=== PATIENT | female | born 1950 | race Caucasian/White ===

== ENCOUNTER 2022-08-28 11:53 | Inpatient (IN) | payer OTHER ==
[~2022-08-28] VITALS: Ht 165.1 cm; Wt 64.0 kg
[~2022-08-28 11:53] MED LIST: ASA81 PO; CLOP75TA32 PO; EMPA25TA PO; LEVO25TA7 PO; LIP40; LISI10TA29 PO; SEMA2PEN
[2022-08-28 11:55] VITALS: BP_SYST 167
--- NOTE | 2022-08-28 11:55 | NUR ---
Placed in room 01 . Placed on manager cardiac cath, blood pressure machine and pulse oximeter. To gown for exam. Side rails up.
--- NOTE | 2022-08-28 11:56 | NUR ---
ER DR. HOSKINS EXAMINING PT
--- NOTE | 2022-08-28 11:57 | NUR ---
RT AT THE BEDSIDE
[2022-08-28] MEDS ORDERED: ETOMIDATE 20 MG/ 10 ML VIAL (AMIDATE) ONE (12:00)
[2022-08-28] MEDS ORDERED: SUCCINYLCHOLINE CHLORIDE 20 MG/ML(QUELICIN) ONE (12:00)
--- NOTE | 2022-08-28 12:00 | NUR ---
Patient not known to be of DNR status. Patient medicated with 20MG mg of ETOMIDATE for sedation prior to placement of ET tube. Respiratory therapy at bedside prior to placement. Size 7.5 ET tube placed by DR. HOSKINS. Cuff inflated with 10 cc air. Auscultation of breath sounds over bilateral chest wall. ET tube secured. O2 sats 100% pulse ox. PCXR ordered to check tube placement.
--- NOTE | 2022-08-28 12:01 | NUR ---
CODE STROKE CALLED
--- NOTE | 2022-08-28 12:02 | NUR ---
TELENEURO AT THE BEDSIDE
--- NOTE | 2022-08-28 12:02 | NUR ---
# 20 gauge angiocath placed to LAC. Use of asceptic technique. Opsite placed over site. Blood return noted. Flushed with 10 cc of normal saline. No evidence of infiltration noted. Patient tolerated well.
[2022-08-28] MEDS ORDERED: PROPOFOL DRIP 100 ML IV ONE (12:30)
--- NOTE | 2022-08-28 12:35 | NUR ---
PT LAYING IN BED WITH SOME MOVEMENT TO RIGHT LEG. PT RESPONS TO PAINFUL STIMULI. NOTED V/S WILL CONTINUE TO MONITOR
[2022-08-28] MEDS ORDERED: iohexoL 350 mgI/mL, 100 ML INFUS..BTL IV ONE (12:44)
--- NOTE | 2022-08-28 12:50 | NUR ---
PT TAKEN TO CT FOR CT ANGIO.
[2022-08-28 13:04] LABS: BASOPHILS # (AUTO) 0.1 K/uL (0.0-0.2); BASOPHILS % (AUTO) 0.9 % (0.0-2.0); EOSINOPHILS # (AUTO) 0.1 K/uL (0.0-0.4); EOSINOPHILS % (AUTO) 1.1 % (0.0-4.0); HEMATOCRIT 43.1 % (36-48); HEMOGLOBIN 14.3 g/dL (12.0-16.0); LYMPHOCYTES # (AUTO) 0.6 K/uL (1.0-5.5); LYMPHOCYTES % (AUTO) 5.1 % (20.5-51.5); MEAN CORPUSCULAR HEMOGLOBIN 30 pg (27-31); MEAN CORPUSCULAR HGB CONC 33 % (32-36); MEAN CORPUSCULAR VOLUME 91 fL (79.0-98.0); MONOCYTES # (AUTO) 0.5 K/uL (0.0-1.0); MONOCYTES % (AUTO) 4.9 % (1.7-9.3); NEUTROPHILS # (AUTO) 9.6 K/uL (1.8-7.7); PLATELET COUNT (AUTO) 210 K/uL (130-430); RED BLOOD CELL COUNT(AUTO) 4.75 MIL/uL (4.2-6.2); RED CELL DISTRIBUTION WIDTH 14.2 % (9.0-15.0); WHITE BLOOD COUNT (AUTO) 10.9 K/uL (4.8-10.8)
--- NOTE | 2022-08-28 13:05 | NUR ---
PT BROUGHT BACK TO BED 1. PROPOFOL @ 5cg/kg started. v/s noted. will continue to monitor
[2022-08-28 13:09] LABS: ANION GAP 24 (5-15); CALCIUM 9.2 mg/dL (8.4-11.0); CHLORIDE 99 mmol/L (98-107); CREATININE 1.49 mg/dL (0.55-1.30); GLUCOSE 247 mg/dL (70-99); UREA NITROGEN, BLOOD 44 mg/dL (8-21)
[2022-08-28 13:16] LABS: ALANINE AMINOTRANSFERASE 15 U/L (12-78); ALBUMIN 3.9 g/dL (3.4-4.8); ASPARTATE AMINOTRANSFERASE 17 U/L (10-37); TOTAL BILIRUBIN 0.8 mg/dL (0.0-1.0)
--- NOTE | 2022-08-28 14:15 | NUR ---
Cathetar Yung inserted 16 hebrew return immediately noted, pt tolerated well, Urine delivered to the lab. 400 ml bedside.
--- NOTE | 2022-08-28 14:19 | NUR ---
Repositioned pt with clean linens, pt feces urine and odor of blood. Cleansed from posterior skin intact, clean and dry.
[2022-08-28] MEDS ORDERED: AZITHROMYCIN 500 MG in NS 250 ML IV ONE (14:30)
[2022-08-28] MEDS ORDERED: NACL 0.9% 1,000 ML IV ONE (14:30)
[2022-08-28] MEDS ORDERED: cefTRIAXone 1 GM IVPB PREMIX 50 ML IV ONE (14:30)
--- NOTE | 2022-08-28 14:38 | NUR ---
PT LAYING CALM, SEDATED. CANDIDO WRIST RESTRAINTS ON. +CSM TO ALL EXTREMITIES. V/S NOTED. WILL CONTINUE TO MONITOR
--- NOTE | 2022-08-28 14:42 | NUR ---
MD De La Garza Neourologist connected to MD Hare
[2022-08-28] MEDS ORDERED: ONDANSETRON HCL 4 MG/2 ML VIAL IVP PRN (15:30)
[2022-08-28] MEDS ORDERED: ACETAMINOPHEN 325 MG TABLET PO PRN (15:30)
[2022-08-28 15:32] LABS: BILIRUBIN,URINE NEGATIVE (NEGATIVE); BLOOD, URINE 1+ (NEGATIVE); CLARITY/URINE CLEAR (CLEAR); COLOR,URINE YELLOW (YELLOW); GLUCOSE,URINE 3+ (NEGATIVE); KETONES,URINE 2+ (NEGATIVE); LEUKOCYTE ESTERASE ,URINE NEGATIVE (NEGATIVE); NITRITE, URINE NEGATIVE (NEGATIVE); PH,URINE 5.5 (5.0-8.0); PROTEIN URINE 1+ (NEGATIVE); UROBILINOGEN,URINE 0.2 (0.2-1.0)
--- NOTE | 2022-08-28 15:38 | NUR ---
aerospace technician bed side, suctioning pt.
[2022-08-28 16:01] LABS: BACTERIA,URINE FEW /HPF (None Seen); MUCUS,URINE None Seen /LPF (None Seen); WBC,URINE 0-3 /HPF (0-3)
[2022-08-28 16:02] LABS: FINE GRANULAR CASTS,URINE 0-10 /LPF (None Seen)
[2022-08-28] MEDS ORDERED: AZITHROMYCIN 500 MG/VIAL (ZITHROMAX) IV ONE (16:08)
--- NOTE | 2022-08-28 16:16 | NUR ---
Swabbed for COVID & MRSA, sent to lab.
[2022-08-28 17:02] VITALS: BP_SYST 141
[2022-08-28] MEDS: PIPERACILLIN/TAZO 3.375/DEX-IS 50 ML IV SCH (18:14)
[2022-08-28] MEDS ORDERED: PIPERACILLIN/TAZOBACTAM 3.375 GM/VIAL (ZOSYN) IV ONE (18:17)
--- NOTE | 2022-08-28 18:24 | NUR ---
Per lab's request, reswabbed pt. COVID & MRSA. sent to lab.
--- NOTE | 2022-08-28 19:30 | NUR ---
VSS, AC 14, TV 450, FIO2 100% PEEP 5, HOB ELEVATED 30%
--- NOTE | 2022-08-28 20:41 | NUR ---
AC 14, TV 450, FIO2 DECREASED TO 40% PEEP 5
--- NOTE | 2022-08-28 22:05 | NUR ---
PT RESTING IN BED WITH EVEN RESPIRATIONS, NON LABORED ,ON DIPRIVAN 9MCG/KG/MIN
[2022-08-29] VITALS (27 sets, daily range): BP systolic 82–165
--- NOTE | 2022-08-29 00:37 | NUR ---
KIM WOLF(TITI) ROOM 2
--- NOTE | 2022-08-29 01:00 | NUR ---
Pt. recieved from ED on Propofol Drip titrated to keep RASS -2 to -[address] ST on the scope. SBP>160 mmHg; Propofol titrated to 15 mcg?Kg/min. To start Zosyn once Blood Cultures are drawn. Made comfortable on the bed. Cardiac and resp. monitoring cont. Needs anticipated.
[2022-08-29] MEDS ORDERED: GLUCOSE (DEXTROSE) ORAL GEL -Adults PO PRN (02:00)
[2022-08-29] MEDS ORDERED: hydrALAZINE HCL 20 MG/ML VIAL IVP PRN (02:00)
[2022-08-29] MEDS ORDERED: PROPOFOL DRIP 100 ML IV PRN (02:00)
[2022-08-29] MEDS ORDERED: DEXTROSE 50% JECT 50 ML DISP.SYRIN IVP PRN (02:00)
[2022-08-29] MEDS ORDERED: D5W 1,000 ML IV PRN (02:00)
--- NOTE | 2022-08-29 02:08 | NUR ---
CONSULTATION PAGED/CALLED Reason for Consultation: AMS Person Who was Notified: left voicemail on cell phone Consulting Physician: huma Collections Attorney Specialty: neuro Ordering Physician: katherine
--- NOTE | 2022-08-29 02:09 | NUR ---
CONSULTATION PAGED/CALLED Reason for Consultation: sepsis Person Who was Notified: tiago Consulting Physician: ernesto Lead Tinner Specialty: infectious disease Ordering Physician: katherine
[2022-08-29] MEDS: NACL 0.9% 1,000 ML IV SCH ×2 (02:25→15:50)
--- NOTE | 2022-08-29 03:00 | NUR ---
Dr. Crawford made aware of pt admission with new orders noted and carried out. NS started @ 75 ml/hr. Propofol titrated to keep RASS -2 to -3. Repositioned. Assisted with needs prn. ST on the scope. SBP 140s @ this time. Remains on vent set @ AC 14, TV 450, FiO2 40% PEEP +5 with O2Sat= 98-100%. Will cont.to monitor.
[2022-08-29] MEDS: PIPERACILLIN/TAZO 3.375/DEX-IS 50 ML IV SCH ×2 (05:32)
--- NOTE | 2022-08-29 06:30 | NUR ---
Remains on vent with same settings sedated with propofol Drip @ 15 mcg/Kg/min. Blood Cultures Drawn x 2 and Zosyn adm IVPB with no adverse reactions at this time. Will follow up Lactate. ST on the scope. VSS. Repositioned. Will cont. to monitor.
[2022-08-29 06:39] LABS: ALANINE AMINOTRANSFERASE 24 U/L (12-78); ALBUMIN 3.3 g/dL (3.4-4.8); ANION GAP 17 (5-15); ASPARTATE AMINOTRANSFERASE 22 U/L (10-37); CALCIUM 8.9 mg/dL (8.4-11.0); CHLORIDE 105 mmol/L (98-107); CREATININE 1.42 mg/dL (0.55-1.30); GLUCOSE 221 mg/dL (70-99); TOTAL BILIRUBIN 0.6 mg/dL (0.0-1.0); UREA NITROGEN, BLOOD 48 mg/dL (8-21)
[2022-08-29 07:14] LABS: BASOPHILS % (AUTO) 0.5 % (0.0-2.0); HEMATOCRIT 38.6 % (36-48); LYMPHOCYTES # (AUTO) 0.8 K/uL (1.0-5.5); MEAN CORPUSCULAR HEMOGLOBIN 30 pg (27-31); MEAN CORPUSCULAR HGB CONC 34 % (32-36); MEAN CORPUSCULAR VOLUME 90 fL (79.0-98.0); MONOCYTES # (AUTO) 1.1 K/uL (0.0-1.0); MONOCYTES % (AUTO) 11.4 % (1.7-9.3); NEUTROPHILS # (AUTO) 7.6 K/uL (1.8-7.7); NEUTROPHILS % (AUTO) 80.1 % (40.0-70.0); PLATELET COUNT (AUTO) 186 K/uL (130-430); RED BLOOD CELL COUNT(AUTO) 4.31 MIL/uL (4.2-6.2); RED CELL DISTRIBUTION WIDTH 14.3 % (9.0-15.0); WHITE BLOOD COUNT (AUTO) 9.5 K/uL (4.8-10.8)
[2022-08-29] MEDS: INSULIN REGULAR, HUMAN 100 UNITS/ML, 3 ML VIAL (humuLIN R) SUBCUT PRN (07:45)
--- NOTE | 2022-08-29 11:00 | NUR ---
PULMO CONSULT: SEEN AND EXAMINE PATIENT INFORMED PATIENT NO FEEDING, STATED HOLD NGT INSERTION AT THIS TIME, CPAP TRIAL AND PLAN FOR EXTUBATION. RT ( JAC MEI) INFORMED.
[2022-08-29] MEDS: cefTRIAXone 1 GM in D5W 50 ML IV SCH (11:31)
--- NOTE | 2022-08-29 12:00 | NUR ---
patient brother( luis a) came updated patient current condition and poc. stated would like to speak with the attending physician. advised will let MD aware.
--- NOTE | 2022-08-29 14:20 | NUR ---
rt notes 1420 placed pt back to ac mode. tolerated weaning trial. Addendum: 08/29/22 at 1421 by Lorena Livingston RT Amended: Links added.
[2022-08-29] MEDS: metroNIDAZOLE 500 mg/NS 100 ML IV SCH ×2 (14:33→21:35)
[2022-08-29] MEDS ORDERED: PANTOPRAZOLE SODIUM 40 MG/VIAL (PROTONIX) IVP ONE (16:45)
--- NOTE | 2022-08-29 17:09 | NUR ---
MD TONG MADE ROUNDS,UPDATED CURRENT CONDITION AND POC. INFORMED FAMILY WOULD LIKE TO SPEAK WITH HIM.
--- NOTE | 2022-08-29 19:27 | NUR ---
sbar bedside report given to eleazar WALLS.
[2022-08-30] VITALS (27 sets, daily range): BP systolic 107–182
[2022-08-30] MEDS: NACL 0.9% 1,000 ML IV SCH ×2 (04:45→17:57)
[2022-08-30 05:27] LABS: BASOPHILS % (AUTO) 0.3 % (0.0-2.0); EOSINOPHILS % (AUTO) 0.1 % (0.0-4.0); HEMOGLOBIN 12.6 g/dL (12.0-16.0); LYMPHOCYTES # (AUTO) 1.3 K/uL (1.0-5.5); LYMPHOCYTES % (AUTO) 10.8 % (20.5-51.5); MEAN CORPUSCULAR HEMOGLOBIN 30 pg (27-31); MEAN CORPUSCULAR HGB CONC 33 % (32-36); MEAN CORPUSCULAR VOLUME 91 fL (79.0-98.0); MONOCYTES # (AUTO) 1.2 K/uL (0.0-1.0); MONOCYTES % (AUTO) 9.8 % (1.7-9.3); NEUTROPHILS # (AUTO) 9.3 K/uL (1.8-7.7); PLATELET COUNT (AUTO) 154 K/uL (130-430); RED BLOOD CELL COUNT(AUTO) 4.17 MIL/uL (4.2-6.2); RED CELL DISTRIBUTION WIDTH 14.6 % (9.0-15.0); WHITE BLOOD COUNT (AUTO) 11.8 K/uL (4.8-10.8)
[2022-08-30 06:10] LABS: ANION GAP 17 (5-15); CHLORIDE 108 mmol/L (98-107); CREATININE 1.41 mg/dL (0.55-1.30); GLUCOSE 176 mg/dL (70-99); UREA NITROGEN, BLOOD 59 mg/dL (8-21)
[2022-08-30] MEDS: metroNIDAZOLE 500 mg/NS 100 ML IV SCH ×3 (06:53→22:00)
--- NOTE | 2022-08-30 07:56 | NUR ---
RT NOTES start cpap Coordinated with RN, vent to cpap 5 ps 10. Pt is awake, no distress noted. Will monitor pt.
--- NOTE | 2022-08-30 08:30 | NUR ---
Patient is awake and alert, denies pain or discomfort at present. Bilateral wrist restraints secure with adequate cap refill, no signs of SBD noted. Patient nods appropriate responses, follows commands in all extremities. 0756 Propofol off for SBT, patient placed on CPAP 30%, 5/10 by RT. Patient's vitals remain stable, patient denies SOB or discomfort, restraints remain in place. Will continue to monitor.
[2022-08-30] MEDS: PANTOPRAZOLE SODIUM 40 MG/VIAL (PROTONIX) IVP SCH (09:17)
--- NOTE | 2022-08-30 09:38 | NUR ---
RT NOTES Dr Yvette steele, ordered to extubate pt, stated no need for ABG.
--- NOTE | 2022-08-30 09:53 | NUR ---
RT NOTES Per order, pt was extubated and placed on 3L NC initially, titrated to 2L. Sat 100% H.R 112 R.R 12. Oral sxn done before cuff deflation.
--- NOTE | 2022-08-30 10:04 | NUR ---
0920 Dr Crawford rounded at bedside. 0953 Patient is extubated to 2LNC by RT without difficulty. Patient instructed to cough and deep breathe. Restraints removed, will keep NPO for now. Will continue to assess.
--- NOTE | 2022-08-30 10:45 | NUR ---
Patient is awake and alert, denies pain or discomfort, has removed telemetry and refuses to allow staff to replace. Patient becomes agitated and kicking and swatting at staff, restraints replaced for safety. Brother and SNL at bedside visiting, patient behavior continues despite family presence. Will continue to observe patient for safety.
[2022-08-30] MEDS: cefTRIAXone 1 GM in D5W 50 ML IV SCH (11:41)
--- NOTE | 2022-08-30 11:45 | NUR ---
After visiting with brother, Bereket states that he is "still concerned about her mental status, which is not the same". He says she is normally fiesty but not to this extent of refusing care and combativeness.
--- NOTE | 2022-08-30 12:12 | NUR ---
Noon LUCITAG 172, will hold SSI due to NPO status
--- NOTE | 2022-08-30 13:58 | NUR ---
Dietitian Recommendations * Recommend speech eval and advancement of diet once evaluated GS, MPH, RD Please refer to RD Assessment for further details. Thanks! Addendum: 08/30/22 at [address] Amended: Links added.
--- NOTE | 2022-08-30 15:45 | NUR ---
Wound Evaluation: Wound Consult ordered for Low Gabriel Score. Patient evaluated for a low Gabriel score, now a 15. Patient was awake, alert, recently extubated, and received in a Pillow Bed with an Isoflex CHANTELLE mattress low air loss therapy initiated. Patient needs assist to turn in bed. Skin is intact. Recommend reposition patient side to side only every 2 hours with pillow support. Elevate, off-load and float bilateral heels with pillows. Offload pressure areas with pillows for pressure re-distribution. Perform skin care and monitor skin integrity Q shift. Use moisture barrier cream on moisture susceptible areas QID and PRN for soiling. Maintain patient on a low air-loss mattress.
--- NOTE | 2022-08-30 16:17 | NUR ---
Patient passed nursing swallow eval with water and juice, no coughing noted during assessment. Dr Morales paged and notified of assessment, as well as elevated HR and BP. Ordered Lopressor 50mg BID, and to keep NPO x meds until tomorrow.
[2022-08-30] MEDS ORDERED: METOPROLOL TARTRATE 50 MG TABLET PO ONE (17:00)
--- NOTE | 2022-08-30 17:58 | NUR ---
1800 CB 182, will hold SSI due to NPO status.
[2022-08-30] MEDS: METOPROLOL TARTRATE 50 MG TABLET PO SCH (21:59)
[2022-08-31] VITALS (17 sets, daily range): BP systolic 135–171
[2022-08-31 05:21] LABS: BASOPHILS % (AUTO) 0.4 % (0.0-2.0); EOSINOPHILS # (AUTO) 0.1 K/uL (0.0-0.4); EOSINOPHILS % (AUTO) 0.8 % (0.0-4.0); HEMATOCRIT 40.8 % (36-48); HEMOGLOBIN 13.5 g/dL (12.0-16.0); LYMPHOCYTES # (AUTO) 0.9 K/uL (1.0-5.5); LYMPHOCYTES % (AUTO) 8.5 % (20.5-51.5); MEAN CORPUSCULAR HEMOGLOBIN 30 pg (27-31); MEAN CORPUSCULAR HGB CONC 33 % (32-36); MEAN CORPUSCULAR VOLUME 91 fL (79.0-98.0); MONOCYTES # (AUTO) 0.6 K/uL (0.0-1.0); MONOCYTES % (AUTO) 5.7 % (1.7-9.3); NEUTROPHILS # (AUTO) 9.2 K/uL (1.8-7.7); NEUTROPHILS % (AUTO) 84.6 % (40.0-70.0); PLATELET COUNT (AUTO) 153 K/uL (130-430); RED BLOOD CELL COUNT(AUTO) 4.48 MIL/uL (4.2-6.2); RED CELL DISTRIBUTION WIDTH 14.3 % (9.0-15.0); WHITE BLOOD COUNT (AUTO) 10.9 K/uL (4.8-10.8)
[2022-08-31 05:43] LABS: ANION GAP 15 (5-15); CALCIUM 9.2 mg/dL (8.4-11.0); CHLORIDE 114 mmol/L (98-107); CREATININE 0.91 mg/dL (0.55-1.30); GLUCOSE 145 mg/dL (70-99); UREA NITROGEN, BLOOD 49 mg/dL (8-21)
[2022-08-31] MEDS: metroNIDAZOLE 500 mg/NS 100 ML IV SCH ×3 (07:07→21:32)
[2022-08-31] MEDS: NACL 0.9% 1,000 ML IV SCH ×2 (07:20→21:33)
[2022-08-31] MEDS: METOPROLOL TARTRATE 50 MG TABLET PO SCH ×2 (08:52→21:32)
[2022-08-31 08:59] LABS: PROTHROMBIN TIME 10.4 SECS (9.5-12.5)
[2022-08-31] MEDS: PANTOPRAZOLE SODIUM 40 MG/VIAL (PROTONIX) IVP SCH (09:00)
--- NOTE | 2022-08-31 09:00 | NUR ---
sees pt at bedside, endorsed doc pt scratching her chest and starting to bleeding, dr. Morales still wanted to put pt on hand mitt
[2022-08-31] MEDS ORDERED: hydrALAZINE HCL 25 MG TABLET PO ONE (10:00)
--- NOTE | 2022-08-31 11:00 | NUR ---
Pt took off hand mitt by herself, explained to pt that the benefit of protective measures and patient verbalized understanding
--- NOTE | 2022-08-31 13:30 | NUR ---
unable to get hold of EDUARD[facility] RN to give report, called twice, will try again
[2022-08-31] MEDS: cefTRIAXone 1 GM in D5W 50 ML IV SCH (14:17)
[2022-08-31] MEDS: hydrALAZINE HCL 25 MG TABLET PO SCH ×2 (14:26→21:31)
--- NOTE | 2022-08-31 15:10 | NUR ---
transfered pt to [facility] 134A, gave hand off report at bedside to nurses, pt is awake, knows person but disoriented to place and situation, on bilateral wrist restraint due to confusion and pulling off director medical and hurting herself, on 2L n.c., O2 sat well, right arm PICC infusing with ABX, joy cath patent, cloudy urine, moving all extremeties, peripheral pulse palpable.
--- NOTE | 2022-08-31 16:40 | NUR ---
ST EVALUATION COMPLETED. ST TX NOT INDICATED AT THIS TIME. RECOMMEND PO DIET OF MECHANICAL SOFT AND THIN LIQUIDS. 1:1 SUPERVISION AND FULL ASPIRATION PRECAUTIONS
--- NOTE | 2022-08-31 20:00 | NUR ---
OPENING Patient resting in bed, unlabored breathing, no distress noted. IV fluids infusing as ordered. Bilateral wrist restraints in place, no sign of injury noted. Yung catheter draining yellow urine to gravity. Safety precautions in place.
--- NOTE | 2022-08-31 23:00 | NUR ---
RESTRAINTS DISCONTINUED Patient alert to name, place, and year. Calm and cooperative with care and answers questions appropriately. Patient stated she will not pull on any tubes or lines. Restraints discontinued at 2300. Bed alarm on, hourly rounding done, safety precautions in place.
[2022-09-01 01:20] VITALS: BP_SYST 140
--- NOTE | 2022-09-01 02:30 | NUR ---
ROUNDS Patient sleeping in bed, no distress noted. Bed alarm on.
[2022-09-01 05:50] LABS: BASOPHILS % (AUTO) 0.2 % (0.0-2.0); HEMATOCRIT 38.1 % (36-48); HEMOGLOBIN 12.8 g/dL (12.0-16.0); LYMPHOCYTES # (AUTO) 0.9 K/uL (1.0-5.5); LYMPHOCYTES % (AUTO) 11.6 % (20.5-51.5); MEAN CORPUSCULAR HEMOGLOBIN 30 pg (27-31); MEAN CORPUSCULAR HGB CONC 34 % (32-36); MEAN CORPUSCULAR VOLUME 91 fL (79.0-98.0); MONOCYTES # (AUTO) 0.5 K/uL (0.0-1.0); MONOCYTES % (AUTO) 6.5 % (1.7-9.3); NEUTROPHILS # (AUTO) 6.2 K/uL (1.8-7.7); NEUTROPHILS % (AUTO) 81.7 % (40.0-70.0); PLATELET COUNT (AUTO) 171 K/uL (130-430); RED BLOOD CELL COUNT(AUTO) 4.21 MIL/uL (4.2-6.2); RED CELL DISTRIBUTION WIDTH 14.3 % (9.0-15.0); WHITE BLOOD COUNT (AUTO) 7.5 K/uL (4.8-10.8)
[2022-09-01 06:36] LABS: ANION GAP 16 (5-15); CALCIUM 8.6 mg/dL (8.4-11.0); CHLORIDE 116 mmol/L (98-107); CREATININE 0.93 mg/dL (0.55-1.30); GLUCOSE 161 mg/dL (70-99); UREA NITROGEN, BLOOD 46 mg/dL (8-21)
[2022-09-01] MEDS: hydrALAZINE HCL 25 MG TABLET PO SCH ×3 (06:51→22:00)
[2022-09-01] MEDS: metroNIDAZOLE 500 mg/NS 100 ML IV SCH ×3 (06:52→21:31)
--- NOTE | 2022-09-01 07:50 | NUR ---
CLOSING Patient resting in bed, no distress noted. Remained calm and cooperative through night, no pulling on lines. Blood sugar 149 this morning. IV fluids infusing as ordered. Yung catheter draining to gravity. Bed alarm on, call light in reach, bed low and locked. Endorsed to oncoming nurse.
[2022-09-01 08:00] VITALS: BP_SYST 115
[2022-09-01] MEDS: PANTOPRAZOLE SODIUM 40 MG/VIAL (PROTONIX) IVP SCH (09:22)
[2022-09-01] MEDS: METOPROLOL TARTRATE 50 MG TABLET PO SCH ×2 (09:23→21:36)
[2022-09-01] MEDS: NACL 0.9% 1,000 ML IV SCH ×2 (10:00→23:20)
[2022-09-01] MEDS ORDERED: POTASSIUM CHLORIDE 20 MEQ/PKT PACKET PO ONE (12:15)
[2022-09-01] MEDS: cefTRIAXone 1 GM in D5W 50 ML IV SCH (12:28)
[2022-09-01] MEDS: INSULIN REGULAR, HUMAN 100 UNITS/ML, 3 ML VIAL (humuLIN R) SUBCUT PRN ×3 (12:30→22:00)
[2022-09-01 12:48] VITALS: BP_SYST 121
--- NOTE | 2022-09-01 15:26 | NUR ---
CONSULTATION PAGED REASON FOR CONSULTATION:CONFUSION WAS CONSULT CALLED?Y PERSON WHO WAS NOTIFIED:VOICEMAIL LEFT CONSULTING PHYSICIAN:[facility] MANAGER SPECIALTY:[facility] MANAGER PHONE NUMBER:[phone] REQUESTING PHYSICIAN:GAMAL PHELPS
--- NOTE | 2022-09-01 15:37 | NUR ---
PHYSICAL THERAPY CO-SIGN The Physical Therapy Progress Notes documented by Procurement Services Manager have been reviewed. Reviewed/Co-Signed by: Kareem Trevino Documentation Done by:FLOYD SHIPLEY Addendum: 09/01/22 at 1537 by Kareem Trevino PT Amended: Links added.
[2022-09-01 16:30] VITALS: BP_SYST 118
--- NOTE | 2022-09-01 17:02 | NUR ---
DISCONTINUE AND REMOVE GORDILLO CATHETER PER DR ORDER.INSTRUCTED PT TO CALL FOR ASSISTANCE WHEN NEEDS TO GO TO BATHROOM.NEEDS ATTENDED,CALL LIGHT & PERSONAL ITEMS WITHIN PT REACH SAFETY MAINTAINED.CONTINUE TO MONITOR PT.
[2022-09-01 20:02] VITALS: BP_SYST 119
[2022-09-02] VITALS: BP_SYST 148
--- NOTE | 2022-09-02 04:52 | NUR ---
pt resting in bed, NAD noted. denies other complaints.
[2022-09-02] MEDS: hydrALAZINE HCL 25 MG TABLET PO SCH ×3 (06:00→22:03)
[2022-09-02] MEDS: metroNIDAZOLE 500 mg/NS 100 ML IV SCH ×3 (06:12→21:23)
[2022-09-02] MEDS: INSULIN REGULAR, HUMAN 100 UNITS/ML, 3 ML VIAL (humuLIN R) SUBCUT PRN ×4 (06:50→21:45)
--- NOTE | 2022-09-02 07:09 | NUR ---
0600 Pt removed GHASSAN PICC, pt had blood all over the room. pt confused about whole details of removing PICC. per pt the blood was all over the place, i do know who spilled blood all over the place"
--- NOTE | 2022-09-02 07:12 | NUR ---
Dr ROCHA notified at 0700, advised ok to restart PICC
--- NOTE | 2022-09-02 07:18 | NUR ---
order for picc line entered per orders
--- NOTE | 2022-09-02 08:00 | NUR ---
Initial notes Received patient A/Ox2 confused respiration even and unlabored, no signs of distress. No IV access Continue to maintain safety precaution, bed in low position and call light w/in reached
[2022-09-02 08:22] VITALS: BP_SYST 151
[2022-09-02 08:49] LABS: PROTHROMBIN TIME 10.5 SECS (9.5-12.5)
[2022-09-02] MEDS: PANTOPRAZOLE SODIUM 40 MG/VIAL (PROTONIX) IVP SCH (09:00)
--- NOTE | 2022-09-02 10:35 | NUR ---
Nutrition F/U RD reviewed pts current EMR including diet hx, physician notes, nursing notes, pertinent labs/meds/procedures, care trends and care activity. Subjective Information RD s/w primary RN regarding pt condition. She attested that pt is very confused currently and not really eating well. RD suggested Glucerna BID and RN agreeable. RD noticed BG are high and said if PO intakes improve, we should add diabetic diet restriction, but while intakes are low, leave diet as is. Per EMR review: abd soft, non-distended w/ active bowel sounds; Gabriel: 13, BP 151/77 H; 09/02: Na 151 H, K+ 3.0L, BUN 46 H, BG 161H. Current Diet Order/Nutrition Support Mechanical soft x 1 day % PO intake Fair avg of 50% x 3 meals Last BM None documented Estimated Energy Expenditure (kcals/day) 4690-2563 kcal (25-30 kcal/kg CBW d/t RF, sepsis) Estimated Protein Required (g/day) 64-96g (1-1.5 g/kg CBW d/t TORI, RF, Sepsis) Estimated Fluid Required (l/day) 1.6-1.9L (1mL/kcal maintenance) Problem/Etiology/Signs/Symptoms * Altered nutrition-related lab values r/t renal dysfunction AEB high BUN/Cre (09/02: BUN high, Cre WNL) Expected Outcomes/Goals Monitor advancement of diet, appetite, and PO intakes w/ goal of pt meeting >75% of estimated nutritional needs, labs trending WNL, normal GI function, and skin integrity/wt maintenance Dietitian Recommendations * Continue mechanical soft diet * Ordered: Glucerna BID * If intakes improve, consider adding consistent CHO restriction d/t high BG levels * Consider bowel regimen as no BM documented since admit (5 days) * Consider DC NS as Na levels are trending high Follow up *Moderate Risk: f/u in 3-5 days GS, MPH, RD
--- NOTE | 2022-09-02 10:36 | NUR ---
Dietitian Recommendations * Continue mechanical soft diet * Ordered: Glucerna BID * If intakes improve, consider adding consistent CHO restriction d/t high BG levels * Consider bowel regimen as no BM documented since admit (5 days) * Consider DC NS as Na levels are trending high GS, MPH, RD Please refer to Nutrition F/U for further details. Thanks!
[2022-09-02 11:33] LABS: BASOPHILS % (AUTO) 0.9 % (0.0-2.0); HEMATOCRIT 36.3 % (36-48); HEMOGLOBIN 12.1 g/dL (12.0-16.0); LYMPHOCYTES # (AUTO) 0.7 K/uL (1.0-5.5); LYMPHOCYTES % (AUTO) 16.6 % (20.5-51.5); MEAN CORPUSCULAR HEMOGLOBIN 30 pg (27-31); MEAN CORPUSCULAR HGB CONC 33 % (32-36); MEAN CORPUSCULAR VOLUME 91 fL (79.0-98.0); MONOCYTES # (AUTO) 0.2 K/uL (0.0-1.0); MONOCYTES % (AUTO) 5.9 % (1.7-9.3); NEUTROPHILS # (AUTO) 3.2 K/uL (1.8-7.7); NEUTROPHILS % (AUTO) 75.6 % (40.0-70.0); PLATELET COUNT (AUTO) 146 K/uL (130-430); RED BLOOD CELL COUNT(AUTO) 4.02 MIL/uL (4.2-6.2); RED CELL DISTRIBUTION WIDTH 14.2 % (9.0-15.0); WHITE BLOOD COUNT (AUTO) 4.2 K/uL (4.8-10.8)
[2022-09-02 11:38] LABS: ALANINE AMINOTRANSFERASE 24 U/L (12-78); ALBUMIN 2.3 g/dL (3.4-4.8); ANION GAP 8 (5-15); ASPARTATE AMINOTRANSFERASE 20 U/L (10-37); CALCIUM 8.2 mg/dL (8.4-11.0); CHLORIDE 115 mmol/L (98-107); CREATININE 0.89 mg/dL (0.55-1.30); GLUCOSE 197 mg/dL (70-99); TOTAL BILIRUBIN 0.5 mg/dL (0.0-1.0); UREA NITROGEN, BLOOD 35 mg/dL (8-21)
[2022-09-02 12:00] VITALS: BP_SYST 140
[2022-09-02] MEDS: cefTRIAXone 1 GM in D5W 50 ML IV SCH (12:00)
[2022-09-02] MEDS: METOPROLOL TARTRATE 50 MG TABLET PO SCH ×2 (12:26→21:23)
[2022-09-02] MEDS: NACL 0.9% 1,000 ML IV SCH (12:40)
--- NOTE | 2022-09-02 14:17 | NUR ---
HIGH ALERT NOTE: Called Dr. Cazares back at [phone] identified within the medical roster to verify physician authenticity.
[2022-09-02] MEDS ORDERED: POTASSIUM CHLORIDE 20 MEQ TAB.PRT.SR PO ONE (14:45)
[2022-09-02 16:00] VITALS: BP_SYST 142
--- NOTE | 2022-09-02 17:45 | NUR ---
PICC line to right upper arm x 2 lumen, 1 CM out, total catheter 35 CM inserted by nurse Colin
--- NOTE | 2022-09-02 19:01 | NUR ---
Patient resting in bed, a/0x4 with some confusion. No c/o pain/SOB, no signs of distress. Reorient patient to use call light. PICC line inserted to GHASSAN x2 lumen by PICC nurse Colin. Maintain safety precaution and call light w/in reached will endorse to oncoming nurse.
[2022-09-02 20:19] VITALS: BP_SYST 140
--- NOTE | 2022-09-02 21:33 | NUR ---
pt resting in bed, scheduled Meds administered. per PICC line nurse documentation, OK to use PICC line
--- NOTE | 2022-09-03 01:08 | NUR ---
pt resting in bed, assisted to use bathroom
[2022-09-03] MEDS: NACL 0.9% 1,000 ML IV SCH ×2 (02:00→15:20)
[2022-09-03 03:27] VITALS: BP_SYST 145
[2022-09-03] MEDS: metroNIDAZOLE 500 mg/NS 100 ML IV SCH ×3 (05:29→21:32)
[2022-09-03 06:17] VITALS: BP_SYST 143
[2022-09-03 06:23] LABS: BASOPHILS % (AUTO) 0.7 % (0.0-2.0); EOSINOPHILS # (AUTO) 0.2 K/uL (0.0-0.4); EOSINOPHILS % (AUTO) 2.4 % (0.0-4.0); HEMATOCRIT 37.4 % (36-48); HEMOGLOBIN 12.5 g/dL (12.0-16.0); LYMPHOCYTES # (AUTO) 1.6 K/uL (1.0-5.5); LYMPHOCYTES % (AUTO) 22.8 % (20.5-51.5); MEAN CORPUSCULAR HEMOGLOBIN 30 pg (27-31); MEAN CORPUSCULAR HGB CONC 33 % (32-36); MEAN CORPUSCULAR VOLUME 89 fL (79.0-98.0); MONOCYTES # (AUTO) 0.4 K/uL (0.0-1.0); MONOCYTES % (AUTO) 6.4 % (1.7-9.3); NEUTROPHILS # (AUTO) 4.7 K/uL (1.8-7.7); NEUTROPHILS % (AUTO) 67.7 % (40.0-70.0); PLATELET COUNT (AUTO) 175 K/uL (130-430); RED BLOOD CELL COUNT(AUTO) 4.19 MIL/uL (4.2-6.2); RED CELL DISTRIBUTION WIDTH 13.8 % (9.0-15.0)
[2022-09-03] MEDS: hydrALAZINE HCL 25 MG TABLET PO SCH ×3 (06:31→21:33)
[2022-09-03 06:32] LABS: ALANINE AMINOTRANSFERASE 21 U/L (12-78); ALBUMIN 2.4 g/dL (3.4-4.8); ANION GAP 8 (5-15); ASPARTATE AMINOTRANSFERASE 17 U/L (10-37); CALCIUM 8.4 mg/dL (8.4-11.0); CHLORIDE 111 mmol/L (98-107); CREATININE 0.83 mg/dL (0.55-1.30); GLUCOSE 207 mg/dL (70-99); TOTAL BILIRUBIN 0.4 mg/dL (0.0-1.0); UREA NITROGEN, BLOOD 27 mg/dL (8-21)
[2022-09-03] MEDS: INSULIN REGULAR, HUMAN 100 UNITS/ML, 3 ML VIAL (humuLIN R) SUBCUT PRN ×4 (06:35→21:28)
[2022-09-03 07:35] VITALS: BP_SYST 131
--- NOTE | 2022-09-03 07:50 | NUR ---
NO CHANGES OVERNIGHT, SAFETY PRECAUTIONS MAINTAINED. ENDORSED CARE TO AM NURSE
--- NOTE | 2022-09-03 07:55 | NUR ---
Initial notes Received patient sleeping in bed, respiration even and unlabored no signs of distress. IV PICC line infusing to right upper arm patent. All safety secured, bed in low position and call light w/in reached.
[2022-09-03] MEDS: PANTOPRAZOLE SODIUM 40 MG/VIAL (PROTONIX) IVP SCH (08:57)
[2022-09-03] MEDS: METOPROLOL TARTRATE 50 MG TABLET PO SCH ×2 (08:58→21:31)
--- NOTE | 2022-09-03 10:00 | NUR ---
Awake in bed oriented with confusion and forgetfulness, reorientate patient
[2022-09-03 12:00] VITALS: BP_SYST 135
[2022-09-03] MEDS ORDERED: LORazepam 2 MG/ML VIAL IVP PRN (12:00)
[2022-09-03] MEDS: cefTRIAXone 1 GM in D5W 50 ML IV SCH (12:14)
[2022-09-03 16:00] VITALS: BP_SYST 132
--- NOTE | 2022-09-03 16:55 | NUR ---
Patient confused and forgetful, attempted to to removed PICC line, not using call light, reorientated patent to environment and use of call light, and activate bed alarm continue to monitor.
--- NOTE | 2022-09-03 19:02 | NUR ---
Patient resting in bed, no signs of distress, continue to reorientate patient to environment, maintain safety precaution, bed in low position and call light w/in reached, will endorse to oncoming nurse
[2022-09-03 22:53] VITALS: BP_SYST 145
[2022-09-04 01:36] VITALS: BP_SYST 136
--- NOTE | 2022-09-04 03:11 | NUR ---
pt vitals are stable. no symptoms or signs of distress. no nausea or vomiting no abdominal pain . pt is alert and oriented x2 . patient is ambulatory with nurse assistance . comfort measures are provided. insulin coverage needed. comfort measures provided. call liggt is within reach
[2022-09-04] MEDS: NACL 0.9% 1,000 ML IV SCH (05:38)
[2022-09-04 05:44] VITALS: BP_SYST 135
[2022-09-04] MEDS: KCL 40 mEq in D5W 1000 mL 1,000 ML IV SCH ×2 (06:00→14:40)
[2022-09-04] MEDS: metroNIDAZOLE 500 mg/NS 100 ML IV SCH ×3 (06:04→22:17)
[2022-09-04] MEDS: hydrALAZINE HCL 25 MG TABLET PO SCH ×3 (06:05→22:17)
[2022-09-04 06:59] LABS: BASOPHILS % (AUTO) 0.7 % (0.0-2.0); EOSINOPHILS # (AUTO) 0.1 K/uL (0.0-0.4); EOSINOPHILS % (AUTO) 2.2 % (0.0-4.0); HEMATOCRIT 34.9 % (36-48); HEMOGLOBIN 11.9 g/dL (12.0-16.0); LYMPHOCYTES # (AUTO) 0.9 K/uL (1.0-5.5); LYMPHOCYTES % (AUTO) 15.7 % (20.5-51.5); MEAN CORPUSCULAR HEMOGLOBIN 30 pg (27-31); MEAN CORPUSCULAR HGB CONC 34 % (32-36); MEAN CORPUSCULAR VOLUME 89 fL (79.0-98.0); MONOCYTES # (AUTO) 0.5 K/uL (0.0-1.0); MONOCYTES % (AUTO) 8.6 % (1.7-9.3); NEUTROPHILS # (AUTO) 4.4 K/uL (1.8-7.7); NEUTROPHILS % (AUTO) 72.8 % (40.0-70.0); PLATELET COUNT (AUTO) 134 K/uL (130-430); RED BLOOD CELL COUNT(AUTO) 3.92 MIL/uL (4.2-6.2); RED CELL DISTRIBUTION WIDTH 14.1 % (9.0-15.0)
--- NOTE | 2022-09-04 08:00 | NUR ---
received patient from pm nurse, alert an oriented to self and situation, able to verbalize needs, no c/o pain or discomfort at this time, will assume all care of patient
[2022-09-04 08:05] LABS: ALANINE AMINOTRANSFERASE 21 U/L (12-78); ALBUMIN 2.3 g/dL (3.4-4.8); ANION GAP 10 (5-15); ASPARTATE AMINOTRANSFERASE 20 U/L (10-37); CALCIUM 7.9 mg/dL (8.4-11.0); CHLORIDE 109 mmol/L (98-107); CREATININE 0.77 mg/dL (0.55-1.30); GLUCOSE 179 mg/dL (70-99); TOTAL BILIRUBIN 0.3 mg/dL (0.0-1.0); UREA NITROGEN, BLOOD 18 mg/dL (8-21)
[2022-09-04] MEDS: PANTOPRAZOLE SODIUM 40 MG/VIAL (PROTONIX) IVP SCH (08:42)
[2022-09-04] MEDS: METOPROLOL TARTRATE 50 MG TABLET PO SCH ×2 (08:44→22:16)
[2022-09-04 11:35] VITALS: BP_SYST 130
[2022-09-04] MEDS: cefTRIAXone 1 GM in D5W 50 ML IV SCH (12:31)
[2022-09-04] MEDS: INSULIN REGULAR, HUMAN 100 UNITS/ML, 3 ML VIAL (humuLIN R) SUBCUT PRN ×2 (12:34→17:12)
[2022-09-04] MEDS ORDERED: POTASSIUM CHLORIDE 20 MEQ TAB.PRT.SR PO ONE (13:15)
--- NOTE | 2022-09-04 15:48 | NUR ---
PHYSICAL THERAPY CO-SIGN The Physical Therapy Progress Notes documented by Shell Coremaker have been reviewed. Reviewed/Co-Signed by: Raymundo Will Documentation Done by:FLOYD SHIPLEY Addendum: 09/04/22 at 1548 by Raymundo Will PT Amended: Links added.
[2022-09-04 16:25] VITALS: BP_SYST 143
--- NOTE | 2022-09-04 19:04 | NUR ---
telephone call from niru at [facility] reporting that she received orders to arrange visits for patients in home for iv ab, did not receive ab orders and inquired on patients ability to self administer ab at home, per family patient lives alone and patient cannot be dc home alone, notified dr cobian of situation discharge to be held and case management to follow up in am
[2022-09-05] VITALS (7 sets, daily range): BP systolic 128–158
[2022-09-05 06:26] LABS: ANION GAP 7 (5-15); CALCIUM 7.8 mg/dL (8.4-11.0); CHLORIDE 106 mmol/L (98-107); CREATININE 0.71 mg/dL (0.55-1.30); GLUCOSE 252 mg/dL (70-99); UREA NITROGEN, BLOOD 13 mg/dL (8-21)
--- NOTE | 2022-09-05 06:45 | NUR ---
Final Rounds: Patient is stable in bed. Call light is within reach with bed in the lowest position.
[2022-09-05] MEDS: hydrALAZINE HCL 25 MG TABLET PO SCH ×3 (06:47→22:22)
--- NOTE | 2022-09-05 06:50 | NUR ---
PT VITALS ARE STABLE, NO SIGNS OR SYMPTOMS OF DISTRESS , DENIES CHEST PAIN OR SHORTNESS OF BREATH.AMBULATE TO THE BATHROOM , CALL LIGHT WITHIN REACH . SLEEPS COMFORTABLE IN HER BED
--- NOTE | 2022-09-05 08:00 | NUR ---
Morning Rounds: Patient in bed resting, room quiet, lights off. Bed in lowest position, call light within reach. Addendum: 09/05/22 at 1036 by Ruy Abreu LVN Patient in stable condition.
[2022-09-05] MEDS: METOPROLOL TARTRATE 50 MG TABLET PO SCH ×2 (09:09→21:23)
[2022-09-05] MEDS: PANTOPRAZOLE SODIUM 40 MG/VIAL (PROTONIX) IVP SCH (09:10)
[2022-09-05] MEDS: KCL 40 mEq in D5W 1000 mL 1,000 ML IV SCH ×2 (09:15→22:17)
[2022-09-05] MEDS: INSULIN REGULAR, HUMAN 100 UNITS/ML, 3 ML VIAL (humuLIN R) SUBCUT PRN ×3 (12:08→21:29)
--- NOTE | 2022-09-05 14:45 | NUR ---
PHYSICAL THERAPY CO-SIGN The Physical Therapy Progress Notes documented by Grey Tender have been reviewed. Reviewed/Co-Signed by: Kareem Trevino Documentation Done by:FLOYD SHIPLEY Addendum: 09/05/22 at 1445 by Kareem Trevino PT Amended: Links added.
--- NOTE | 2022-09-05 18:37 | NUR ---
HCP AFTER HOURS SPOKE WITH HARSH IN AFTER HOURS [phone] INFORMED ME THAT HOME HEALTH IS SET UP [facility] [phone] INFORMED TITI QUINTANILLA SHE SAID THAT EMILY AUDIO VISUAL SPECIALIST TOLD HER THAT PT WOULD BE GOING TO SNF SINCE PT IS UNABLE TO GO HOME. CALLED BACK TO HCP AFTER HOURS TO SPEAK WITH HARSH AWAITING CALL BACK TO FIND OUT WHAT IS STATUS
--- NOTE | 2022-09-05 19:30 | NUR ---
END OF SHIFT: ENDORSED TO NIGHT NURSE HIGINIO,WAITING FOR DRILLING CONTRACTOR [facility]ILY FROM [facility]STATING THAT PATIENT WILL BE GOING TO SNF AND HAD TO WAIT FOR BED AVAILABILITY. ALSO SPOKE TO PTS' BROTHER NATALIO ,PATIENT CAN NOT BE DISCHARGE HOME ,BROTHER AND MD DISCUSSED TO SEND PATIENT TO SNF,DR ROCHA IS AWARE.
--- NOTE | 2022-09-05 19:42 | NUR ---
PM ASSESSMENT; -Patient is awake, alert, oriented X 4. Patient oriented to hospital room, call light, toileting, pain management and safety-teach back done.Pt denies any chest pain,pain,sob,or any acute distress. Discussed poc and all safety measures, pt verbalized understanding. Pt has GHASSAN PICC both patent no s/s any infiltration noted. IVF Infusing well. Patient informed that I (Dasha) will be her nurse and that their room number is 134-A. Side rails x2,Call light within reach. Cont to monitor pt.
--- NOTE | 2022-09-06 00:12 | NUR ---
ROUNDS; -Pt is asleep. NO s/s any acute distress noted. IVF infusing well. All safety measures in place, side rails x2. Call light w/in reach. Cont to monitor pt.
[2022-09-06 02:09] VITALS: BP_SYST 138
[2022-09-06] MEDS: KCL 40 mEq in D5W 1000 mL 1,000 ML IV SCH ×2 (05:15→14:13)
[2022-09-06] MEDS: hydrALAZINE HCL 25 MG TABLET PO SCH ×3 (05:29→22:00)
[2022-09-06] MEDS: INSULIN REGULAR, HUMAN 100 UNITS/ML, 3 ML VIAL (humuLIN R) SUBCUT PRN ×4 (05:33→23:24)
--- NOTE | 2022-09-06 06:36 | NUR ---
CLOSING NOTES; -Pt awakes, resting in bed comfortably. Pt denies any chest pain,pain,sob,or any acute distress. IVF infusing well. All safety measures in place, side rails x2. Call light w/in reach. Pt's condition stable. Will endorse to next nurse to cont care.
[2022-09-06 07:58] VITALS: BP_SYST 143
[2022-09-06] MEDS: METOPROLOL TARTRATE 50 MG TABLET PO SCH ×2 (08:49→22:00)
[2022-09-06] MEDS: PANTOPRAZOLE SODIUM 40 MG/VIAL (PROTONIX) IVP SCH (09:07)
--- NOTE | 2022-09-06 09:57 | NUR ---
CALL FROM PATIENT'S BROTHER Patient's brother Bereket called for an update. Gave report on health status, he stated he has left multiple messages for Steffi FAULKNER from [facility]. I stated that I will also relay message to Steffi as well.
--- NOTE | 2022-09-06 12:00 | NUR ---
Notes; Patient laying in bed, watching TV and having visit from her brother. Patient Breathing even and unlabored on room air O2. No pain, no distress, no SOB. Patient ambulatory and is able to use the restroom on her own . Bed is locked in lowest position. Call light within reach, all needs met, will continue to monitor.
[2022-09-06 12:27] VITALS: BP_SYST 140
--- NOTE | 2022-09-06 14:00 | NUR ---
Belongings. Per patient's brother, her clothes and shoes were not transfered from ER, ICU and bed room number 134. We check ICU, room 134 and her current room 121A and no clothes noted. I stated I will make an incident report and update him.
--- NOTE | 2022-09-06 16:00 | NUR ---
Notes Patient laying in bed, sleeping. Patient Breathing even and unlabored on room air O2. No pain, no distress, no SOB. Bed is locked in lowest position. Call light within reach, all needs met, will continue to monitor.
--- NOTE | 2022-09-06 16:16 | NUR ---
PHYSICAL THERAPY CO-SIGN The Physical Therapy Progress Notes documented by Quality Assurance Tester have been reviewed. Reviewed/Co-Signed by: Raymundo Will Documentation Done by:FLOYD SHIPLEY Addendum: 09/06/22 at 1617 by Raymundo Will PT Amended: Links added.
[2022-09-06 16:37] VITALS: BP_SYST 123
--- NOTE | 2022-09-06 18:36 | NUR ---
Closing Notes; Patient laying in bed, resting. A/O x 4, Uruguayan speaking. Patient Breathing even and unlabored on room air. No pain, no distress, no SOB. Patient CCHO diet. Patient has PICC GHASSAN. Patient is able to ambulate with assistants. Bed is locked in lowest position. Call light within reach, all needs met, will endorse to steward/stewardess night nurse.
[2022-09-07 00:47] VITALS: BP_SYST 128
[2022-09-07] MEDS: KCL 40 mEq in D5W 1000 mL 1,000 ML IV SCH (04:30)
[2022-09-07 06:25] LABS: BASOPHILS % (AUTO) 0.9 % (0.0-2.0); EOSINOPHILS # (AUTO) 0.2 K/uL (0.0-0.4); EOSINOPHILS % (AUTO) 4.1 % (0.0-4.0); HEMATOCRIT 35.9 % (36-48); HEMOGLOBIN 11.9 g/dL (12.0-16.0); LYMPHOCYTES # (AUTO) 1.6 K/uL (1.0-5.5); LYMPHOCYTES % (AUTO) 31.1 % (20.5-51.5); MEAN CORPUSCULAR HEMOGLOBIN 30 pg (27-31); MEAN CORPUSCULAR HGB CONC 33 % (32-36); MEAN CORPUSCULAR VOLUME 90 fL (79.0-98.0); MONOCYTES # (AUTO) 0.8 K/uL (0.0-1.0); NEUTROPHILS # (AUTO) 2.3 K/uL (1.8-7.7); NEUTROPHILS % (AUTO) 46.9 % (40.0-70.0); PLATELET COUNT (AUTO) 191 K/uL (130-430); RED BLOOD CELL COUNT(AUTO) 3.98 MIL/uL (4.2-6.2); RED CELL DISTRIBUTION WIDTH 14.1 % (9.0-15.0)
[2022-09-07 06:42] LABS: ANION GAP 5 (5-15); CALCIUM 8.7 mg/dL (8.4-11.0); CHLORIDE 102 mmol/L (98-107); CREATININE 0.85 mg/dL (0.55-1.30); GLUCOSE 156 mg/dL (70-99); UREA NITROGEN, BLOOD 10 mg/dL (8-21)
[2022-09-07 07:35] VITALS: BP_SYST 119
--- NOTE | 2022-09-07 07:35 | NUR ---
OPENING NOTES; Patient laying in bed, resting. A/O x 4, Jamaican speaking. Patient Breathing even and unlabored on room air. No pain, no distress, no SOB. Patient CCHO diet. Patient has PICC GHASSAN. Patient is able to ambulate with assistants. Bed is locked in lowest position. Call light within reach, all needs met, will continue to monitor.
[2022-09-07] MEDS: INSULIN REGULAR, HUMAN 100 UNITS/ML, 3 ML VIAL (humuLIN R) SUBCUT PRN ×2 (07:37→11:22)
[2022-09-07] MEDS: hydrALAZINE HCL 25 MG TABLET PO SCH ×2 (07:45→14:42)
--- NOTE | 2022-09-07 07:59 | NUR ---
PT IN BED RESTING WITH BED IN LOW POSITION
[2022-09-07] MEDS: METOPROLOL TARTRATE 50 MG TABLET PO SCH (08:30)
--- NOTE | 2022-09-07 08:30 | NUR ---
[facility] [employer] Placed a call to Steffi from [facility] asking for an update on patient's SNF placement. Left voicemail and waiting a call back.
--- NOTE | 2022-09-07 09:11 | NUR ---
[facility] Spoke with [facility]jay of [facility] with information that patient got accepted to [facility] but patient needs to have [facility] in order for a bed number. Jayjay will call later with information on transport. I called Jesi in case management to inform her of PAS[facility] form.
[2022-09-07] MEDS: PANTOPRAZOLE SODIUM 40 MG/VIAL (PROTONIX) IVP SCH (09:26)
--- NOTE | 2022-09-07 09:31 | NUR ---
Brother Bereket Spoke with brother Bereket of patient letting him know of [facility] and he stated he would rather her go home with home health instead. He stated he will be calling Jayjay the Case Manger for [facility] and let him know. During this time MD Rizvi was at bedside and I informed him of the brothers concerns and he stated he will DC with home health.
[2022-09-07 11:19] VITALS: BP_SYST 102
--- NOTE | 2022-09-07 12:10 | NUR ---
Notes; Patient laying in bed, resting watching TV. No pain, no distress, no SOB. Patient ambulatory and is able to use the restroom on her own with assistants. Bed is locked in lowest position. Call light within reach, all needs met, will continue to monitor.
--- NOTE | 2022-09-07 15:01 | NUR ---
[facility] Spoke with Jayjay from [facility] regarding patients discharge he stated patient is good to go and will contact Bereket Osorio, Brother regarding Home Health Nursing agency. Relayed message to MD Rizvi who stated he will do order right now. Will begin to get patient ready for discharge.
[2022-09-07] MEDS ORDERED: METO-442 PO (15:03)
[2022-09-07 15:14] VITALS: BP_SYST 111; BP_SYST 119
--- NOTE | 2022-09-07 15:30 | NUR ---
D/C Patient Patient given medication reconciliation form and D/C instructions. Exit Care provided. Patient verbalized understanding. MD Rizvi discussed with patient the results and treatment provided. Ambulatory with assist, transported in wheelchair for discharge to home. Patient in stable condition, ID band removed. IV catheter removed, intact and dressing applied, no active bleeding. Discharge paperwork given. Patient educated on medication, follow up care and home health. All belongings sent with patient.
--- NOTE | 2022-09-21 11:37 | NUR ---
Professor Of Sport Management PRINTING PRESS OPERATOR made a post discharge follow up phone call to pt. Jo who stated she has been feeling very very tired, is not on any oxygen, but it is hard to breathe. Jo stated " On Sun. my sugar lowered my tyroid medication and I have been feeling very tired" Jo did not know if the two were related. Jo stated she has a PT apt twice a week. Once the Pt leaves today, Jo will call to speak to Dr. Princess childs.
== END 2022-09-07 15:40 | disposition home or self-care (01) | DRG 871 ==
LOC: SED 11:53 → SIC 15:28 → STU 08-31 15:00 → SMU 09-07 14:19
PROVIDERS: ADMIT Family Medicine; ATTEND Family Medicine
PROC: 5A1945Z Respiratory Ventilation, 24-96 Consecutive Hours (ICD-10-PCS; principal; 2022-08-28)
PROC: 0BH17EZ Insertion of Endotracheal Airway into Trachea, Via Natural or Artificial Opening (ICD-10-PCS; 2022-08-28)
PROC: 4A00X4Z Measurement of Central Nervous Electrical Activity, External Approach (ICD-10-PCS; 2022-08-30)
DX: A41.9 Sepsis, unspecified organism (principal); G92.8 Other toxic encephalopathy; J96.01 Acute respiratory failure with hypoxia; N39.0 Urinary tract infection, site not specified; N17.9 Acute kidney failure, unspecified; I25.10 Atherosclerotic heart disease of native coronary artery without angina pectoris; E78.5 Hyperlipidemia, unspecified; E66.9 Obesity, unspecified; I12.9 Hypertensive chronic kidney disease with stage 1 through stage 4 chronic kidney disease, or unspecified chronic kidney disease; E11.22 Type 2 diabetes mellitus with diabetic chronic kidney disease; N18.9 Chronic kidney disease, unspecified; E03.9 Hypothyroidism, unspecified; E11.65 Type 2 diabetes mellitus with hyperglycemia; Z20.822 Contact with and (suspected) exposure to COVID-19; Z79.82 Long term (current) use of aspirin; Z79.899 Other long term (current) drug therapy; Z86.73 Personal history of transient ischemic attack (TIA), and cerebral infarction without residual deficits; Z68.23 Body mass index [BMI] 23.0-23.9, adult
CPT/HCPCS: 36415; 36600; 70450-TC; 70496; 70498; 70551; 71045; 76376; 76770; 80048; 80053; 81000; 82009; 82803-TC; 82962; 83605; 83735; 83880; 84484; 85025; 85379; 85610-TC; 85730-TC; 87040; 87070-TC; 87081; 87205-TC; 92610-GN; 93005; 94002; 94003; 94640; 94760; 95816; 97110-GP; 97116-GP; 97163-GP; 97530-GP; 99291; 99292; C9113; G0378; J0330; J0360; J0456; J0696; J1815; J2060; J2543; J2704; J3490; J7060; Q9967

== ENCOUNTER 2022-09-26 00:37 | Emergency (ER) | payer OTHER ==
[~2022-09-26] VITALS: Ht 162.6 cm; Wt 61.7 kg
[~2022-09-26 00:37] MED LIST changes: -LISI10TA29 PO; +METO-442 PO
[2022-09-26 00:55] VITALS: BP_SYST 88
--- NOTE | 2022-09-26 01:03 | NUR ---
Placed in room 5 . Placed on quality assurance monitor final, blood pressure machine and pulse oximeter. To gown for exam. Side rails up. Report given to INES WALLS(REG).
--- NOTE | 2022-09-26 01:10 | NUR ---
ER at bedside examining patient.
--- NOTE | 2022-09-26 01:17 | NUR ---
COVID AND MRSA SAMPLE COLLECTED AND SENT TO LAB
--- NOTE | 2022-09-26 01:20 | NUR ---
PT IS AA&OX4. AFEBRILE. NAD. DENIES PAIN. PER PT, SHE LIVES ALONE AT HOME. SHE CALLED PAR[facility]ED[facility] WHEN SHE SAW SHE HAS LOW BP & BLOOD GLUCOSE AT HOME. RECENT VS: 104/55, BS: 199MG/DL. PER PT, SHE AMBULATES W/ NO ASSISTIVE DEVICE AT HOME. SAFE & HAZARD FREE ENVIRONMENT PROVIDED.
[2022-09-26] MEDS ORDERED: NACL 0.9% 1,000 ML IV ONE (01:30)
[2022-09-26 02:50] LABS: BASOPHILS % (AUTO) 0.3 % (0.0-2.0); HEMATOCRIT 37.7 % (36-48); HEMOGLOBIN 12.7 g/dL (12.0-16.0); LYMPHOCYTES # (AUTO) 0.4 K/uL (1.0-5.5); LYMPHOCYTES % (AUTO) 6.5 % (20.5-51.5); MEAN CORPUSCULAR HEMOGLOBIN 31 pg (27-31); MEAN CORPUSCULAR HGB CONC 34 % (32-36); MEAN CORPUSCULAR VOLUME 92 fL (79.0-98.0); MONOCYTES # (AUTO) 0.5 K/uL (0.0-1.0); MONOCYTES % (AUTO) 7.4 % (1.7-9.3); NEUTROPHILS # (AUTO) 5.9 K/uL (1.8-7.7); NEUTROPHILS % (AUTO) 85.8 % (40.0-70.0); PLATELET COUNT (AUTO) 126 K/uL (130-430); RED BLOOD CELL COUNT(AUTO) 4.12 MIL/uL (4.2-6.2); RED CELL DISTRIBUTION WIDTH 15.2 % (9.0-15.0); WHITE BLOOD COUNT (AUTO) 6.9 K/uL (4.8-10.8)
--- NOTE | 2022-09-26 02:57 | NUR ---
Urine specimen collected and SENT TO LAB.
[2022-09-26 03:01] LABS: ANION GAP 12 (5-15); CALCIUM 8.2 mg/dL (8.4-11.0); CHLORIDE 105 mmol/L (98-107); CREATININE 0.99 mg/dL (0.55-1.30); GLUCOSE 180 mg/dL (70-99); UREA NITROGEN, BLOOD 17 mg/dL (8-21)
[2022-09-26 03:14] LABS: ALANINE AMINOTRANSFERASE 20 U/L (12-78); ASPARTATE AMINOTRANSFERASE 12 U/L (10-37); PHOSPHORUS 4.6 mg/dL (2.7-4.5); THYROID STIMULATING HORMONE 0.78 uIu/mL (0.34-4.82); TOTAL BILIRUBIN 0.6 mg/dL (0.0-1.0)
[2022-09-26 03:27] LABS: PROTHROMBIN TIME 10.8 SECS (9.5-12.5)
[2022-09-26 04:59] LABS: BILIRUBIN,URINE NEGATIVE (NEGATIVE); COLOR,URINE YELLOW (YELLOW); GLUCOSE,URINE 3+ (NEGATIVE); KETONES,URINE TRACE (NEGATIVE); NITRITE, URINE NEGATIVE (NEGATIVE); PROTEIN URINE NEGATIVE (NEGATIVE); UROBILINOGEN,URINE 0.2 (0.2-1.0)
[2022-09-26 05:01] LABS: BLOOD, URINE TRACE (NEGATIVE); CLARITY/URINE SLIGHTLY CLOUDY (CLEAR); LEUKOCYTE ESTERASE ,URINE TRACE (NEGATIVE)
[2022-09-26 05:04] LABS: BACTERIA,URINE FEW /HPF (None Seen)
[2022-09-26] MEDS ORDERED: CEPH-548 PO (05:10)
--- NOTE | 2022-09-26 05:19 | NUR ---
PER PT, HER FRIEND WILL BE THE ONE TO PICK HER UP BUT SHE WON'T BE ABLE TO CALL HER RIGHT NOW COZ SHE MIGHT BE SLEEPING RIGHT NOW. PER PT, SHE'LL CALL HER FRIEND IN A COUPLE OF HRS TO BE PCIKED UP FR THE E.R. DR. PALACIO MADE AWARE.
--- NOTE | 2022-09-26 07:10 | NUR ---
REPORT GIVEN TO TITI WHITFIELD TO ASSUME CARE. PT UP FOR D/C. FRIEND WILL SHOE DYER.
[2022-09-26 08:39] VITALS: BP_SYST 116
--- NOTE | 2022-09-26 08:39 | NUR ---
Patient given written and verbal discharge instructions and verbalizes understanding. ER MD discussed with patient the results and treatment provided. Patient in stable condition. ID arm band removed. IV catheter removed intact and dressing applied, no active bleeding. Rx of KEFLEX given. Patient educated on pain management and to follow up with PMD. Pain Scale . Opportunity for questions provided and answered. Medication side effect fact sheet provided.
== END 2022-09-26 08:39 | disposition home or self-care (01) ==
LOC: SED 00:37
DX: N39.0 Urinary tract infection, site not specified (principal); E11.9 Type 2 diabetes mellitus without complications; I10 Essential (primary) hypertension; Z79.899 Other long term (current) drug therapy; Z20.822 Contact with and (suspected) exposure to COVID-19
CPT/HCPCS: 99285; 96360; 71045; 87426; 80053; 81000; 82962; 83735; 84100; 84443; 85025; 85610; 87086; 84484; 36415; 93005; 83605; 87040; 87081; J7030

== ENCOUNTER 2022-12-09 18:50 | Inpatient (IN) | payer OTHER ==
[~2022-12-09] VITALS: Ht 160 cm; Wt 61.7 kg
[~2022-12-09 18:50] MED LIST changes: +CEPH-548 PO; -LIP40; +LIP40 PO
[2022-12-09 19:06] VITALS: BP_SYST 111; PULSE 96; RESP 20; TEMP 98.1; O2SAT 97
--- NOTE | 2022-12-09 19:09 | NUR ---
Placed in room 06 . Placed on youth nutritional monitor, blood pressure machine and pulse oximeter. To gown for exam. Side rails up.
[2022-12-09] MEDS ORDERED: NACL 0.9% 1,000 ML IV ONE (19:15)
[2022-12-09] MEDS ORDERED: MORPHINE 2 MG/ML INJ. SYRINGE IVP ONE (19:15)
--- NOTE | 2022-12-09 19:50 | NUR ---
pATIENT ARRIVED TO ED 6 for c/o abdominal pain via ambulance [id number]. Report from JUAN DAVID Stewart. Patient came from home for c/o abdominal pain. Was recently discharged from [facility] for c. diff. She has had diarrhea in morning today. Pain right lower quadrant pain. Hx. HTN, type 2 DM. Belongings at bedside. Will continue to monitor.
[2022-12-09 19:52] LABS: BASOPHILS % (AUTO) 0.3 % (0.0-2.0); HEMATOCRIT 28.5 % (36-48); HEMOGLOBIN 9.5 g/dL (12.0-16.0); LYMPHOCYTES # (AUTO) 0.5 K/uL (1.0-5.5); LYMPHOCYTES % (AUTO) 4.6 % (20.5-51.5); MEAN CORPUSCULAR HEMOGLOBIN 30 pg (27-31); MEAN CORPUSCULAR HGB CONC 33 % (32-36); MEAN CORPUSCULAR VOLUME 90 fL (79.0-98.0); MONOCYTES # (AUTO) 0.5 K/uL (0.0-1.0); MONOCYTES % (AUTO) 4.5 % (1.7-9.3); NEUTROPHILS # (AUTO) 10.3 K/uL (1.8-7.7); NEUTROPHILS % (AUTO) 90.6 % (40.0-70.0); PLATELET COUNT (AUTO) 230 K/uL (130-430); RED BLOOD CELL COUNT(AUTO) 3.16 MIL/uL (4.2-6.2); RED CELL DISTRIBUTION WIDTH 16.9 % (9.0-15.0); WHITE BLOOD COUNT (AUTO) 11.4 K/uL (4.8-10.8)
--- NOTE | 2022-12-09 19:52 | NUR ---
Patient went to CT.
[2022-12-09 20:14] LABS: ALANINE AMINOTRANSFERASE 10 U/L (12-78); ALBUMIN 1.5 g/dL (3.4-4.8); ANION GAP 9 (5-15); ASPARTATE AMINOTRANSFERASE 29 U/L (10-37); CHLORIDE 93 mmol/L (98-107); CREATININE 1.36 mg/dL (0.55-1.30); GLUCOSE 245 mg/dL (70-99); LIPASE 40 U/L (73-393); TOTAL BILIRUBIN 0.5 mg/dL (0.0-1.0); UREA NITROGEN, BLOOD 50 mg/dL (8-21)
[2022-12-09 20:18] LABS: CALCIUM 6.9 mg/dL (8.4-11.0)
[2022-12-09 21:17] LABS: BILIRUBIN,URINE NEGATIVE (NEGATIVE); BLOOD, URINE NEGATIVE (NEGATIVE); COLOR,URINE YELLOW (YELLOW); GLUCOSE,URINE NEGATIVE (NEGATIVE); KETONES,URINE NEGATIVE (NEGATIVE); LEUKOCYTE ESTERASE ,URINE NEGATIVE (NEGATIVE); NITRITE, URINE NEGATIVE (NEGATIVE); PH,URINE 5.5 (5.0-8.0); PROTEIN URINE 1+ (NEGATIVE)
[2022-12-09 21:30] LABS: CLARITY/URINE HAZY (CLEAR)
[2022-12-09 21:47] LABS: BACTERIA,URINE RARE /HPF (None Seen); RBC,URINE 0-3 /HPF (0-3); WBC,URINE NONE SEEN /HPF (0-3)
[2022-12-09 21:48] LABS: COARSE GRANULAR CASTS,URINE 0-10 /LPF (None Seen); HYALINE CASTS, URINE 0-10 /LPF (None Seen); MUCUS,URINE 1+ /LPF (None Seen); URINE AMORPHOUS URATE 1+ /HPF (None Seen)
--- NOTE | 2022-12-09 22:41 | NUR ---
Patient resting fluids. running.
--- NOTE | 2022-12-09 23:38 | NUR ---
Patient sleeping at the moment.
--- NOTE | 2022-12-10 02:07 | NUR ---
Admit bed requested Patient will be admitted to care of . Admitted to Medsurge unit. Diagnosis C. Diff. Inpatient (Yes or No) Yes Observation (Yes or No) No Orientation concerns or request close to nursing station (Yes or No) No Covid Status N/A On vent or bipap No Isolation requirements Contact Needs a sitter No From Home (Yes or if No enter name of facility) Yes Requires Dialysis (Yes or No) Yes Med Rec Completed (Yes of No) Yes
[2022-12-10] MEDS ORDERED: ONDANSETRON HCL 4 MG/2 ML VIAL IVP PRN (02:15)
[2022-12-10] MEDS ORDERED: MORPHINE 2 MG/ML INJ. SYRINGE IVP PRN (02:15)
[2022-12-10] MEDS ORDERED: HYDROcodone/ACETAMIN 5-325 MG TAB (NORCO/ VICODIN) PO PRN (02:15)
[2022-12-10] MEDS ORDERED: ACETAMINOPHEN 325 MG TABLET PO PRN (02:15)
--- NOTE | 2022-12-10 02:15 | NUR ---
Admit bed requested Patient will be admitted to care of . Admitted to Medsurge unit. Diagnosis COLITIS Inpatient (Yes or No) Yes Observation (Yes or No) No Orientation concerns or request close to nursing station (Yes or No) No Covid Status N/A On vent or bipap No Isolation requirements Contact Needs a sitter No From Home (Yes or if No enter name of facility) Yes Requires Dialysis (Yes or No) Yes Med Rec Completed (Yes of No) Yes
[2022-12-10] MEDS: cefTRIAXone 1 GM IVPB PREMIX 50 ML IV SCH ×2 (02:42→21:16)
[2022-12-10] MEDS: NACL 0.9% 1,000 ML IV SCH ×2 (02:43→15:35)
[2022-12-10] MEDS ORDERED: cefTRIAXone 1 GM IVPB PREMIX 50 ML IV ONE (02:46)
--- NOTE | 2022-12-10 05:24 | NUR ---
Patient resting at the moment. No distress noted. Repositioned as appropriate.
[2022-12-10] MEDS ORDERED: INSULIN REGULAR, HUMAN 10 UNITS/0.1 ML, 3 ML VIAL ONE (06:10)
--- NOTE | 2022-12-10 06:40 | NUR ---
Report given to day shift RN for continuity of care. Patient in stable condition. Voided in bedpan. Cleaned and patient aware of bed request.
--- NOTE | 2022-12-10 07:44 | NUR ---
Report received from RN Noble; pt calm and resting with unlabored respirations Pt with 22 gauge LAC Linens clean and dry.
--- NOTE | 2022-12-10 08:00 | NUR ---
Note shirlene in ED - 12/10/22 at 0820 by DIAN Received report from TITI Peters; Pt calm resting in bed with even and unlabored respiration.
--- NOTE | 2022-12-10 08:06 | NUR ---
Note undone in EDM - 12/10/22 at 0840 by DIAN Patient given written and verbal discharge instructions and verbalizes understanding. ER discussed with patient the results and treatment provided. Patient in stable condition. ID arm band removed. Patient educated on pain management and to follow up with PMD. Opportunity for questions provided and answered. Medication side effect fact sheet provided.
--- NOTE | 2022-12-10 08:40 | NUR ---
Patient will be admitted to care of moy pak. Admitted to med surg unit. Will go to room 107b. Belongings list completed. Complete and up to date summary report printed. SBAR report to be given at bedside with opportunity for questions.
--- NOTE | 2022-12-10 09:06 | NUR ---
asmission patient admitted to the floor via gurney report was endorsed by er nurse baron. patient is awake and alert laying in bed no complaints at this time. call light is with her educated to use call light for assistance.
[2022-12-10 09:10] VITALS: BP_SYST 128; PULSE 94; RESP 18; TEMP 97.1
[2022-12-10] MEDS ORDERED: KCL 20 mEq in 100 mL (PREMIX) 100 ML IV ONE (09:30)
[2022-12-10] MEDS ORDERED: ATORVASTATIN 20 MG TABLET PO ONE (09:45)
[2022-12-10] MEDS ORDERED: ASPIRIN 81 MG TAB.CHEW PO ONE (09:45)
[2022-12-10] MEDS ORDERED: VANCOMYCIN HCL ORAL SOLUTION 125 MG/5 ML, 150 ML PO ONE (09:45)
[2022-12-10] MEDS ORDERED: MULTIVITAMINS TAB 1 TABLET PO ONE (10:00)
[2022-12-10] MEDS ORDERED: CLOPIDOGREL BISULFATE 75 MG TABLET PO ONE (10:00)
[2022-12-10] MEDS ORDERED: CALCIUM CHLORIDE 1 GM in NS 100 ML IV ONE (10:00)
[2022-12-10] MEDS ORDERED: METOPROLOL TARTRATE 50 MG TABLET PO ONE (10:00)
[2022-12-10] MEDS ORDERED: LEVOTHYROXINE SODIUM 0.025 MG TABLET PO ONE (10:00)
[2022-12-10] MEDS ORDERED: FERROUS SULFATE 325 MG TABLET.DR PO ONE (10:00)
--- NOTE | 2022-12-10 10:52 | NUR ---
CONSULTATION PAGED/CALLED Reason for Consultation: TORI, HYPONATREMIA Person Who was Notified: NAT Consulting Physician: DAVID MUNIZ Ordering Physician: JAROD HARRIS
[2022-12-10 11:25] VITALS: BP_SYST 117; PULSE 93; RESP 16; TEMP 97.5; O2SAT 97
[2022-12-10] MEDS: INSULIN REGULAR, HUMAN 100 UNITS/ML, 3 ML VIAL (humuLIN R) SUBCUT PRN ×2 (12:09→17:53)
--- NOTE | 2022-12-10 12:11 | NUR ---
insulin patients scheduled insulin given. patient is sitting up in bed eating lunch. patient educated consultant internship light for assistance. call light is with her. no other needs at this time.
[2022-12-10] MEDS: VANCOMYCIN HCL ORAL SOLUTION 125 MG/5 ML, 150 ML PO SCH ×3 (13:41→21:00)
[2022-12-10 15:31] VITALS: BP_SYST 119; PULSE 88; RESP 16; TEMP 97.6; O2SAT 100
[2022-12-10 17:28] LABS: ALANINE AMINOTRANSFERASE 6 U/L (12-78); ALBUMIN 1.4 g/dL (3.4-4.8); ANION GAP 6 (5-15); ASPARTATE AMINOTRANSFERASE 30 U/L (10-37); CALCIUM 7.7 mg/dL (8.4-11.0); CHLORIDE 99 mmol/L (98-107); GLUCOSE 178 mg/dL (70-99); TOTAL BILIRUBIN 0.4 mg/dL (0.0-1.0); UREA NITROGEN, BLOOD 43 mg/dL (8-21)
--- NOTE | 2022-12-10 17:50 | NUR ---
MEDICATION PATIENTS SCHEDULED MEDICATION GIVEN PER ORDER. PATIENTS ACCU CHECK DONE, COVERAGE GIVEN PER ORDER. PATIENT IS AWAKE AND ALERT EATING DINNER. EDUCATED TO USE CALL LIGHT FOR ASSISTANCE. CALL LIGHT IS WITH HER. NO OTHER NEEDS AT THIS TIME.
[2022-12-10 19:00] VITALS: O2SAT 98
--- NOTE | 2022-12-10 19:30 | NUR ---
Report received from day shift RN for continuity of care. Patient in stable condition. No distress noted. On iso precautions.
--- NOTE | 2022-12-10 19:30 | NUR ---
Report received from shift supervisor melting RN for continuity of care. Patient in stable condition. No distress noted.
--- NOTE | 2022-12-10 19:37 | NUR ---
RN CLOSING NOTE REPORT WAS ENDORSED TO NIGHT NURSE. PATIENT IS AWAKE AND ALERT SITTING UP IN BED. NO COMPLAINTS AT THIS TIME. EDUCATED BRIDGE MAINTAINER LIGHT FOR ASSISTANCE. CALL LIGHT IS WITH HER. NO SIGNS OF ANY DISTRESS, NO OTHER NEEDS AT THIS TIME.
[2022-12-10] MEDS: METOPROLOL TARTRATE 50 MG TABLET PO SCH (21:01)
--- NOTE | 2022-12-11 | NUR ---
Patient resting throughout the shift.
[2022-12-11 00:51] VITALS: BP_SYST 106; PULSE 84; RESP 17; TEMP 97.8; O2SAT 96
[2022-12-11 04:00] VITALS: BP_SYST 108; PULSE 90; RESP 20; TEMP 98.2; O2SAT 98
[2022-12-11] MEDS: NACL 0.9% 1,000 ML IV SCH ×2 (05:07→18:15)
[2022-12-11] MEDS: LEVOTHYROXINE SODIUM 0.025 MG TABLET PO SCH (05:07)
--- NOTE | 2022-12-11 06:35 | NUR ---
Report given to day shift RN for continuity of care. Patient in stable condition. No distress noted.
[2022-12-11 07:02] LABS: BASOPHILS % (AUTO) 0.2 % (0.0-2.0); EOSINOPHILS % (AUTO) 0.3 % (0.0-4.0); HEMATOCRIT 28.6 % (36-48); HEMOGLOBIN 9.6 g/dL (12.0-16.0); LYMPHOCYTES # (AUTO) 0.6 K/uL (1.0-5.5); LYMPHOCYTES % (AUTO) 13.4 % (20.5-51.5); MEAN CORPUSCULAR HEMOGLOBIN 31 pg (27-31); MEAN CORPUSCULAR HGB CONC 34 % (32-36); MEAN CORPUSCULAR VOLUME 91 fL (79.0-98.0); MONOCYTES # (AUTO) 0.3 K/uL (0.0-1.0); MONOCYTES % (AUTO) 7.3 % (1.7-9.3); NEUTROPHILS # (AUTO) 3.7 K/uL (1.8-7.7); NEUTROPHILS % (AUTO) 78.8 % (40.0-70.0); PLATELET COUNT (AUTO) 229 K/uL (130-430); RED BLOOD CELL COUNT(AUTO) 3.16 MIL/uL (4.2-6.2); RED CELL DISTRIBUTION WIDTH 16.5 % (9.0-15.0); WHITE BLOOD COUNT (AUTO) 4.7 K/uL (4.8-10.8)
--- NOTE | 2022-12-11 07:45 | NUR ---
Morning rounds made, pt alert, awake and responsive. Denies any pain or discomfort. Periph IV on the left AC intact. Flushed and patent. Routine medication and Antibiotics given. Contact isolation maintained per diagnosis.Glucose checked and insulin administered per sliding scale.
[2022-12-11 08:00] VITALS: BP_SYST 110; PULSE 84; RESP 16; TEMP 96.1; O2SAT 94
[2022-12-11 08:03] LABS: ALANINE AMINOTRANSFERASE 7 U/L (12-78); ALBUMIN 1.3 g/dL (3.4-4.8); ANION GAP 6 (5-15); ASPARTATE AMINOTRANSFERASE 28 U/L (10-37); CALCIUM 7.3 mg/dL (8.4-11.0); CHLORIDE 101 mmol/L (98-107); CREATININE 0.83 mg/dL (0.55-1.30); GLUCOSE 139 mg/dL (70-99); PHOSPHORUS 2.7 mg/dL (2.7-4.5); TOTAL BILIRUBIN 0.4 mg/dL (0.0-1.0); UREA NITROGEN, BLOOD 35 mg/dL (8-21)
[2022-12-11] MEDS: METOPROLOL TARTRATE 50 MG TABLET PO SCH ×2 (09:00→21:10)
[2022-12-11] MEDS: ASPIRIN 81 MG TAB.CHEW PO SCH (09:38)
[2022-12-11] MEDS: ATORVASTATIN 20 MG TABLET PO SCH (09:41)
[2022-12-11] MEDS: FERROUS SULFATE 325 MG TABLET.DR PO SCH (09:41)
[2022-12-11] MEDS: MULTIVITAMINS TAB 1 TABLET PO SCH (09:42)
[2022-12-11] MEDS: CLOPIDOGREL BISULFATE 75 MG TABLET PO SCH (09:42)
[2022-12-11] MEDS: VANCOMYCIN HCL ORAL SOLUTION 125 MG/5 ML, 150 ML PO SCH ×4 (09:45→21:09)
[2022-12-11] MEDS ORDERED: POTASSIUM CHLORIDE 20 MEQ TAB.PRT.SR PO ONE (11:15)
[2022-12-11] MEDS: INSULIN REGULAR, HUMAN 100 UNITS/ML, 3 ML VIAL (humuLIN R) SUBCUT PRN ×3 (11:23→21:18)
[2022-12-11 11:25] VITALS: BP_SYST 108; PULSE 79; RESP 16; TEMP 97; O2SAT 96
[2022-12-11] MEDS ORDERED: MAGNESIUM SULFATE 50 ML IV ONE (13:00)
--- NOTE | 2022-12-11 13:29 | NUR ---
CONSULTATION PAGED/CALLED Reason for Consultation: COLITIS Person Who was Notified: CAITY Consulting Physician: IJEOMA DUMONT Ordering Physician: DR TONG
[2022-12-11 15:13] VITALS: BP_SYST 104; PULSE 81; RESP 16; TEMP 97.6; O2SAT 95
--- NOTE | 2022-12-11 16:45 | NUR ---
Iv out: Tried iv insertion,patient is a hard stick,not able to get iv access. paged.
--- NOTE | 2022-12-11 18:36 | NUR ---
Paged: Spoke with Dr Morales with orders ,midline placement for hydration iv antibiotics.Patient is a hard stick.
[2022-12-11 20:00] VITALS: BP_SYST 126; PULSE 85; RESP 18; TEMP 97.3; O2SAT 95
--- NOTE | 2022-12-11 22:00 | NUR ---
MIDLINE PLACEMENT: Midline, catheter 5 FR placed to Left upper arm by Colin Dodge PICC RN. Use of sterile technique. Opsite placed over site. Blood return noted. Flushed with 10 cc of normal saline. No evidence of infiltration noted. Patient tolerated well.
[2022-12-12] VITALS (8 sets, daily range): BP systolic 106–140; PULSE 73–82; RESP 15–18; TEMP 96.1–97.6; O2SAT 95–97
--- NOTE | 2022-12-12 01:00 | NUR ---
perineal care given , optifoam dressing sacral are intact , repositioned
[2022-12-12] MEDS ORDERED: cefTRIAXone 1 GM VIAL ONE (03:16)
[2022-12-12] MEDS: cefTRIAXone 1 GM IVPB PREMIX 50 ML IV SCH (03:27)
[2022-12-12] MEDS: NACL 0.9% 1,000 ML IV SCH (04:09)
[2022-12-12] MEDS: LEVOTHYROXINE SODIUM 0.025 MG TABLET PO SCH (06:38)
--- NOTE | 2022-12-12 07:30 | NUR ---
OPENING NOTE; PT RESTING IN BED, BREATHING NON-LABORED AND EVEN. DENIES ANY ACUTE DISTRESS OR PAIN. IVF RUNNING ORDERED. CONTACT ISOLATION FOR POSITIVE C-DIFF. BED IS LOCKED AND AT LOW POSITION. SAFETY PRECAUTION IN PLACE. ENCOURAGED PT TO USE CALL LIGHT FOR ASSISTANCE
[2022-12-12] MEDS: METOPROLOL TARTRATE 50 MG TABLET PO SCH ×2 (09:00→20:57)
[2022-12-12] MEDS: ATORVASTATIN 20 MG TABLET PO SCH (09:00)
[2022-12-12] MEDS: MULTIVITAMINS TAB 1 TABLET PO SCH (09:00)
[2022-12-12] MEDS: FERROUS SULFATE 325 MG TABLET.DR PO SCH (09:00)
--- NOTE | 2022-12-12 10:15 | NUR ---
NOTES; CALLED REGARDING PT.
[2022-12-12] MEDS: VANCOMYCIN HCL ORAL SOLUTION 125 MG/5 ML, 150 ML PO SCH ×4 (10:16→20:56)
[2022-12-12] MEDS: ASPIRIN 81 MG TAB.CHEW PO SCH (10:41)
[2022-12-12] MEDS: CLOPIDOGREL BISULFATE 75 MG TABLET PO SCH (10:44)
--- NOTE | 2022-12-12 11:42 | NUR ---
NOTES; RECEIVED NEW ORDER FROM , CARRIED OUT
[2022-12-12] MEDS ORDERED: LACTOBACILLUS RHAMNOSUS GG 1 CAP CAPSULE PO ONE (11:45)
[2022-12-12] MEDS: INSULIN REGULAR, HUMAN 100 UNITS/ML, 3 ML VIAL (humuLIN R) SUBCUT PRN ×3 (11:53→21:23)
[2022-12-12 12:22] LABS: ANION GAP 6 (5-15); CALCIUM 7.1 mg/dL (8.4-11.0); CHLORIDE 102 mmol/L (98-107); CREATININE 0.81 mg/dL (0.55-1.30); GLUCOSE 186 mg/dL (70-99); UREA NITROGEN, BLOOD 19 mg/dL (8-21)
[2022-12-12 13:34] LABS: BASOPHILS % (AUTO) 0.9 % (0.0-2.0); EOSINOPHILS # (AUTO) 0.1 K/uL (0.0-0.4); EOSINOPHILS % (AUTO) 2.6 % (0.0-4.0); HEMATOCRIT 33.5 % (36-48); HEMOGLOBIN 10.8 g/dL (12.0-16.0); LYMPHOCYTES # (AUTO) 0.8 K/uL (1.0-5.5); LYMPHOCYTES % (AUTO) 26.6 % (20.5-51.5); MEAN CORPUSCULAR HEMOGLOBIN 30 pg (27-31); MEAN CORPUSCULAR HGB CONC 32 % (32-36); MEAN CORPUSCULAR VOLUME 93 fL (79.0-98.0); MONOCYTES # (AUTO) 0.2 K/uL (0.0-1.0); MONOCYTES % (AUTO) 7.1 % (1.7-9.3); NEUTROPHILS # (AUTO) 1.8 K/uL (1.8-7.7); NEUTROPHILS % (AUTO) 62.8 % (40.0-70.0); PLATELET COUNT (AUTO) 245 K/uL (130-430); RED BLOOD CELL COUNT(AUTO) 3.61 MIL/uL (4.2-6.2); RED CELL DISTRIBUTION WIDTH 16.4 % (9.0-15.0); WHITE BLOOD COUNT (AUTO) 2.9 K/uL (4.8-10.8)
--- NOTE | 2022-12-12 14:20 | NUR ---
NOTES; PT RESTING IN BED, BREATHING NON-LABORED AND EVEN. DENIES ANY PAIN OR DISCOMFORT. CALL LIGHT WITHIN REACH. SAFETY PRECAUTION IN PLACE. WILL CONT TO MONITOR FOR ANY CHANGES.
[2022-12-12] MEDS: metroNIDAZOLE 500 mg/NS 100 ML IV SCH ×2 (15:30→21:21)
--- NOTE | 2022-12-12 16:28 | NUR ---
PHYSICAL THERAPY CO-SIGN The Physical Therapy Progress Notes documented by Marketing Analytics Analyst have been reviewed. Reviewed/Co-Signed by: Kareem Trevino Documentation Done by:FLOYD SHIPLEY Addendum: 12/12/22 at 1628 by Kareem Trevino PT Amended: Links added.
--- NOTE | 2022-12-12 18:20 | NUR ---
MD ROUNDS; AT BEDSIDE, ASSESSING PT
--- NOTE | 2022-12-12 19:00 | NUR ---
CLOSING NOTE; PT RESTING IN BED, BREATHING NON-LABORED AND EVEN. DENIES ANY ACUTE DISTRESS OR PAIN. IVF RUNNING ORDERED. CONTACT ISOLATION FOR POSITIVE C-DIFF. NO C/O ACUTE DISTRESS OR PAIN NOTED. BED IS LOCKED AND AT LOW POSITION. SAFETY PRECAUTION IN PLACE. ENCOURAGED PT TO USE CALL LIGHT FOR ASSISTANCE. WILL ENDORSE CARE TO MANAGER PSYCHOLOGY NURSE.
[2022-12-12] MEDS: LACTOBACILLUS RHAMNOSUS GG 1 CAP CAPSULE PO SCH (20:57)
[2022-12-13 00:07] VITALS: BP_SYST 118; PULSE 80; RESP 18; TEMP 98.4
[2022-12-13] MEDS: metroNIDAZOLE 500 mg/NS 100 ML IV SCH ×3 (05:57→21:21)
[2022-12-13] MEDS: NACL 0.9% 1,000 ML IV SCH ×2 (06:00→11:39)
[2022-12-13] MEDS: LEVOTHYROXINE SODIUM 0.025 MG TABLET PO SCH (06:09)
[2022-12-13 06:53] LABS: BASOPHILS % (AUTO) 1.3 % (0.0-2.0); EOSINOPHILS # (AUTO) 0.2 K/uL (0.0-0.4); EOSINOPHILS % (AUTO) 4.5 % (0.0-4.0); HEMATOCRIT 28.3 % (36-48); HEMOGLOBIN 9.3 g/dL (12.0-16.0); LYMPHOCYTES # (AUTO) 1.4 K/uL (1.0-5.5); LYMPHOCYTES % (AUTO) 37.5 % (20.5-51.5); MEAN CORPUSCULAR HEMOGLOBIN 30 pg (27-31); MEAN CORPUSCULAR HGB CONC 33 % (32-36); MEAN CORPUSCULAR VOLUME 91 fL (79.0-98.0); MONOCYTES # (AUTO) 0.3 K/uL (0.0-1.0); NEUTROPHILS # (AUTO) 1.8 K/uL (1.8-7.7); NEUTROPHILS % (AUTO) 49.7 % (40.0-70.0); PLATELET COUNT (AUTO) 254 K/uL (130-430); RED CELL DISTRIBUTION WIDTH 16.5 % (9.0-15.0); WHITE BLOOD COUNT (AUTO) 3.7 K/uL (4.8-10.8)
--- NOTE | 2022-12-13 07:30 | NUR ---
OPENING NOTE; PT RESTING IN BED, BREATHING NON-LABORED AND EVEN. IVF RUNNING ORDERED. MIDLINE KEPT INTACT AND PATENT. NO IV INFILTRATION OR INFECTION NOTED. BED IS LOCKED AND AT LOW POSITION. CALL LIGHT WITHIN REACH. SAFETY PRECAUTION IN PLACE. ENCOURAGED PT TO USE CALL LIGHT FOR ASSISTANCE. WILL CONT TO MONITOR FOR ANY CHANGES
[2022-12-13 07:45] LABS: ANION GAP 4 (5-15); CHLORIDE 106 mmol/L (98-107); CREATININE 0.69 mg/dL (0.55-1.30); GLUCOSE 118 mg/dL (70-99); UREA NITROGEN, BLOOD 15 mg/dL (8-21)
[2022-12-13 07:59] LABS: CALCIUM 6.4 mg/dL (8.4-11.0)
[2022-12-13 08:00] VITALS: BP_SYST 129; PULSE 79; RESP 18; TEMP 96.9; O2SAT 96
--- NOTE | 2022-12-13 08:21 | NUR ---
ATTENDING MD DR TONG WAS CALLED, RE; CRITICAL L CA LEVEL OF 6.4. SPOKE TO [place].
[2022-12-13] MEDS: LACTOBACILLUS RHAMNOSUS GG 1 CAP CAPSULE PO SCH ×2 (08:26→21:09)
[2022-12-13] MEDS: MULTIVITAMINS TAB 1 TABLET PO SCH (08:26)
[2022-12-13] MEDS: ASPIRIN 81 MG TAB.CHEW PO SCH (08:26)
[2022-12-13] MEDS: ATORVASTATIN 20 MG TABLET PO SCH (08:26)
[2022-12-13] MEDS: CLOPIDOGREL BISULFATE 75 MG TABLET PO SCH (08:26)
[2022-12-13] MEDS: FERROUS SULFATE 325 MG TABLET.DR PO SCH (08:26)
[2022-12-13] MEDS: VANCOMYCIN HCL ORAL SOLUTION 125 MG/5 ML, 150 ML PO SCH ×4 (08:26→21:09)
[2022-12-13] MEDS: METOPROLOL TARTRATE 50 MG TABLET PO SCH ×2 (08:34→21:10)
[2022-12-13] MEDS ORDERED: LACTOBACILLUS RHAMNOSUS GG 1 CAP CAPSULE PO SCH (09:00)
--- NOTE | 2022-12-13 10:30 | NUR ---
1XDIARRHEA, PROVIDED PERICARE. APPLIED BARRIER CREAM AROUND PERINEAL AREA. PT TOLERATED WELL.
--- NOTE | 2022-12-13 11:00 | NUR ---
WOUND CARE; PROVIDED WOUND CARE. PHOTO TAKEN. PT TOLERATED WELL.
[2022-12-13 11:25] VITALS: BP_SYST 112; PULSE 77; RESP 16; TEMP 97.1; O2SAT 100
[2022-12-13] MEDS: INSULIN REGULAR, HUMAN 100 UNITS/ML, 3 ML VIAL (humuLIN R) SUBCUT PRN ×3 (11:46→21:07)
--- NOTE | 2022-12-13 12:03 | NUR ---
NOTES; CALLED KITCHEN FOR YOGURT DR. TONG SUGGESTED.
--- NOTE | 2022-12-13 14:55 | NUR ---
NOTES; PT RESTING IN BED, IVF RUNNING ORDERED. DENIES ANY PAIN OR DISCOMFORT. WILL CONT TO MONITOR FOR ANY CHANGES
[2022-12-13 15:10] VITALS: BP_SYST 109; PULSE 79; RESP 16; TEMP 96.7; O2SAT 98
--- NOTE | 2022-12-13 15:38 | NUR ---
PHYSICAL THERAPY CO-SIGN The Physical Therapy Progress Notes documented by Bakery Demonstrator have been reviewed. Reviewed/Co-Signed by: Kareem Trevino Documentation Done by:FLOYD SHIPLEY Addendum: 12/13/22 at 1538 by Kareem Trevino PT Amended: Links added.
--- NOTE | 2022-12-13 17:19 | NUR ---
Dietitian Recommendations * Continue [facility] diet * Snacks BID between meals (yogurt) for added prebiotics LP, MS, RD Please refer to Nutrition Assessment for details. Addendum: 12/13/22 at [address] Amended: Links added. Addendum: 12/13/22 at [address] CORRECTION: Dietitian Recommendations * Continue [facility] diet * Snacks BID between meals (yogurt) for added probiotics LP, MS, RD Please refer to Nutrition Assessment for details.
--- NOTE | 2022-12-13 17:55 | NUR ---
ID MD DR DUMONT WAS CALLED, RE: POSITIVE BLOOD CX. SPOKE TO BECKY.
--- NOTE | 2022-12-13 19:20 | NUR ---
CLOSING NOTE; PT RESTING IN BED, BREATHING NON-LABORED AND EVEN. IVF RUNNING ORDERED. MIDLINE KEPT INTACT AND PATENT. NO IV INFILTRATION OR INFECTION NOTED. BED IS LOCKED AND AT LOW POSITION. CALL LIGHT WITHIN REACH. SAFETY PRECAUTION IN PLACE. ENCOURAGED PT TO USE CALL LIGHT FOR ASSISTANCE. ENDORSED ATTENUATOR NURSE FOR AWAITING CALL BACK FROM FOR THE POSITIVE BLOOD CULTURE RESULT. ENDORSED CARE TO ATTENUATOR NURSE.
[2022-12-13 20:00] VITALS: BP_SYST 128; PULSE 82; RESP 16; TEMP 96.9; O2SAT 97
--- NOTE | 2022-12-13 20:17 | NUR ---
OPENING NOTES PATIENT IS LYING IN BED AXO 4 WITH NO S/S OF PAIN OR DISCOMFORT. V/S ARE STABLE AND BREATHING IS EQUAL AND LABORED ON RA. IV FLUIDS ARE RUNNING. SAFETY CHECKS ARE DONE AND CALL LIGHT WITH IN REACH.
--- NOTE | 2022-12-13 20:35 | NUR ---
PAGED: DR MARISCAL PAGED 2 ND TIME TO NOTIFY THE BLOOD CULTURE RESULT .
--- NOTE | 2022-12-13 20:54 | NUR ---
SPOKE TO DR. MARISCAL ABOUT BLOOD CULTURE. NO NEW ORDERS.
[2022-12-13 22:46] VITALS: O2SAT 98
--- NOTE | 2022-12-14 00:17 | NUR ---
NOTES PATIENT IS LYING IN BED NO S/S OF DISTRESS OR DISCOMFORT. IV FLUIDS ARE RUNNING. SAFETY CHECKS ARE DONE AND CALL LIGHT WITH IN REACH,
[2022-12-14 00:50] VITALS: BP_SYST 113; PULSE 81; RESP 18; TEMP 98; O2SAT 96
--- NOTE | 2022-12-14 04:11 | NUR ---
NOTES PATIENT IS ASLEEP IN BED. IV FLUIDS ARE RUNNING. WILL CONTINUE TO MONITOR.
[2022-12-14] MEDS: NACL 0.9% 1,000 ML IV SCH ×2 (05:07→15:04)
[2022-12-14] MEDS: metroNIDAZOLE 500 mg/NS 100 ML IV SCH ×3 (05:08→22:02)
[2022-12-14 05:58] LABS: BASOPHILS # (AUTO) 0.1 K/uL (0.0-0.2); BASOPHILS % (AUTO) 1.4 % (0.0-2.0); EOSINOPHILS # (AUTO) 0.1 K/uL (0.0-0.4); EOSINOPHILS % (AUTO) 3.4 % (0.0-4.0); HEMATOCRIT 28.5 % (36-48); HEMOGLOBIN 9.6 g/dL (12.0-16.0); LYMPHOCYTES # (AUTO) 1.4 K/uL (1.0-5.5); LYMPHOCYTES % (AUTO) 31.7 % (20.5-51.5); MEAN CORPUSCULAR HEMOGLOBIN 31 pg (27-31); MEAN CORPUSCULAR HGB CONC 34 % (32-36); MEAN CORPUSCULAR VOLUME 91 fL (79.0-98.0); MONOCYTES # (AUTO) 0.3 K/uL (0.0-1.0); MONOCYTES % (AUTO) 5.8 % (1.7-9.3); NEUTROPHILS # (AUTO) 2.5 K/uL (1.8-7.7); NEUTROPHILS % (AUTO) 57.7 % (40.0-70.0); PLATELET COUNT (AUTO) 246 K/uL (130-430); RED BLOOD CELL COUNT(AUTO) 3.12 MIL/uL (4.2-6.2); RED CELL DISTRIBUTION WIDTH 16.3 % (9.0-15.0); WHITE BLOOD COUNT (AUTO) 4.4 K/uL (4.8-10.8)
[2022-12-14] MEDS: LEVOTHYROXINE SODIUM 0.025 MG TABLET PO SCH (06:20)
[2022-12-14 06:30] LABS: ANION GAP 4 (5-15); CHLORIDE 107 mmol/L (98-107); CREATININE 0.69 mg/dL (0.55-1.30); GLUCOSE 120 mg/dL (70-99); UREA NITROGEN, BLOOD 11 mg/dL (8-21)
[2022-12-14 06:35] LABS: CALCIUM 6.1 mg/dL (8.4-11.0)
--- NOTE | 2022-12-14 06:39 | NUR ---
CRITICAL LAB: from Laboratory called with critical lab value CALCIUM 6.1. Medical record number and patient name verified. Read back of values done. DR. ROCHA notified of value. NO orders given at this time.
--- NOTE | 2022-12-14 06:57 | NUR ---
CLOSING NOTES PATIENT IS LYING IN BED AXO 4 AMERICAN SPEAKING AND STABLE. BREATHING IS EQUAL AND UNLABORED ON RA. BLOOD SUGAR WAS 108 THIS MORNING NO INSULIN COVERAGE NEEDED. PATIENT IS CHANGED WITH DRESSING ON SACRAL CHANGED WELL. SAFETY CHECKS ARE DONE AND CALL LIGHT WITH IN REACH.
[2022-12-14 08:00] VITALS: O2SAT 96
[2022-12-14 08:50] VITALS: BP_SYST 133; PULSE 77; RESP 18; TEMP 94; O2SAT 96
[2022-12-14] MEDS: ASPIRIN 81 MG TAB.CHEW PO SCH (10:10)
[2022-12-14] MEDS: LACTOBACILLUS RHAMNOSUS GG 1 CAP CAPSULE PO SCH ×2 (10:11→20:47)
[2022-12-14] MEDS: ATORVASTATIN 20 MG TABLET PO SCH (10:11)
[2022-12-14] MEDS: FERROUS SULFATE 325 MG TABLET.DR PO SCH (10:11)
[2022-12-14] MEDS: VANCOMYCIN HCL ORAL SOLUTION 125 MG/5 ML, 150 ML PO SCH ×4 (10:11→20:48)
[2022-12-14] MEDS: METOPROLOL TARTRATE 50 MG TABLET PO SCH ×2 (10:12→20:48)
[2022-12-14] MEDS: CLOPIDOGREL BISULFATE 75 MG TABLET PO SCH (10:12)
[2022-12-14] MEDS: MULTIVITAMINS TAB 1 TABLET PO SCH (10:12)
[2022-12-14] MEDS ORDERED: CALCIUM GLUC 1 GM/100ML-NACL 100 ML IV ONE (11:00)
[2022-12-14 11:16] VITALS: BP_SYST 127; PULSE 79; RESP 16; TEMP 97.6; O2SAT 97
--- NOTE | 2022-12-14 12:03 | NUR ---
PHYSICAL THERAPY CO-SIGN The Physical Therapy Progress Notes documented by Forging Press Operator have been reviewed. Reviewed/Co-Signed by: Kareem Trevino Documentation Done by:FLOYD SHIPLEY Addendum: 12/14/22 at 1204 by Kareem Trevino PT Amended: Links added.
[2022-12-14] MEDS: INSULIN REGULAR, HUMAN 100 UNITS/ML, 3 ML VIAL (humuLIN R) SUBCUT PRN ×2 (12:16→20:50)
[2022-12-14 15:03] VITALS: BP_SYST 130; PULSE 78; RESP 16; TEMP 97.5; O2SAT 96
--- NOTE | 2022-12-14 17:37 | NUR ---
Eating breakfast, v/s stable no complaints.
--- NOTE | 2022-12-14 18:36 | NUR ---
Tolerating diet,v/s stable ,minute amount of loose stool,no complaints, continue with plan of care.
[2022-12-14 20:00] VITALS: BP_SYST 134; PULSE 80; RESP 16; TEMP 97.7; O2SAT 97
--- NOTE | 2022-12-14 20:10 | NUR ---
OPENING NOTES PATIENT IS LYING IN BED AXO 4 WITH NO S/S OF PAIN OR DISCOMFORT. BREATHING IS EQUAL AND UNLABORED. SAFETY CHECKS ARE DONE AND CALL LIGHT WITH IN REACH.
[2022-12-15] VITALS (7 sets, daily range): BP systolic 120–139; PULSE 73–83; RESP 16–18; TEMP 97–98.3; O2SAT 94–97
--- NOTE | 2022-12-15 02:07 | NUR ---
ROUNDS PATIENT IS ASLEEP IN BED WITH NO S/S OF DISTRESS OR PAIN AT THIS TIME. IVF ARE RUNNING. SAFETY CHECKS DONE AND CALL LIGHT IN REACH,
[2022-12-15] MEDS: NACL 0.9% 1,000 ML IV SCH ×2 (02:15→14:28)
[2022-12-15] MEDS: metroNIDAZOLE 500 mg/NS 100 ML IV SCH ×3 (05:20→21:53)
[2022-12-15] MEDS: LEVOTHYROXINE SODIUM 0.025 MG TABLET PO SCH (06:08)
--- NOTE | 2022-12-15 06:51 | NUR ---
CLOSING NOTES PATIENT IS LYING IN BED AXO 4 WITH NO S/S OF DISTRESS OR PAIN. BREATHING IS EQUAL AND UNLABORED ON RA. BLOOD SUGAR WAS 106 THIS MORNING NO INSULIN COVERAGE NEEDED AT THIS TIME. ALL NEEDS HAVE BEEN MET. SAFETY CHECKS ARE DONE AND CALL LIGHT WITH IN REACH.
--- NOTE | 2022-12-15 07:23 | NUR ---
Initial note: Report received from Pepito. Patient is resting in bed. Awake alert x4. No signs of pain or discomfort at this time. Bed in the lowest position and side rails x3 up. Bed alarm is on. Call light in reach. Assessment is done. Will continue patient care.
[2022-12-15] MEDS: LACTOBACILLUS RHAMNOSUS GG 1 CAP CAPSULE PO SCH ×2 (08:46→21:51)
[2022-12-15] MEDS: VANCOMYCIN HCL ORAL SOLUTION 125 MG/5 ML, 150 ML PO SCH ×4 (08:46→21:51)
[2022-12-15] MEDS: ASPIRIN 81 MG TAB.CHEW PO SCH (08:47)
[2022-12-15] MEDS: METOPROLOL TARTRATE 50 MG TABLET PO SCH ×2 (08:47→21:52)
[2022-12-15] MEDS: MULTIVITAMINS TAB 1 TABLET PO SCH (08:47)
[2022-12-15] MEDS: FERROUS SULFATE 325 MG TABLET.DR PO SCH (08:47)
[2022-12-15] MEDS: CLOPIDOGREL BISULFATE 75 MG TABLET PO SCH (08:47)
[2022-12-15] MEDS: ATORVASTATIN 20 MG TABLET PO SCH (08:47)
[2022-12-15] MEDS ORDERED: DIPHENOXYLATE HCL/ATROP SULF 2.5 MG TAB PO ONE (11:15)
--- NOTE | 2022-12-15 11:18 | NUR ---
PHYSICAL THERAPY CO-SIGN The Physical Therapy Progress Notes documented by Binder Sorter have been reviewed. Reviewed/Co-Signed by: Kareem Trevino Documentation Done by:FLOYD SHIPLEY Addendum: 12/15/22 at 1118 by Kareem Trevino PT Amended: Links added.
[2022-12-15] MEDS ORDERED: CALCIUM GLUCONATE 2 GM in NS 100 ML IV ONE (13:00)
--- NOTE | 2022-12-15 19:20 | NUR ---
Closing note: Reported to Fermín. patient is awake alert x4. Resting in bed, No pain or discomfort at this time. Endorse to continue patient care. No more diarrhea was noted in my shift.
--- NOTE | 2022-12-15 20:00 | NUR ---
pt.assessed.pt.quiescent.pt.presents mid-line location lt.bicept.intact;patent iv fluids infusing.no c/o pain,nausea.pt.apprised snacks/beverages are available w/in the shift.no requests posited@this hour.pt.assessed for cleanliness pt.repositioned.call light/ telephone placed w/in access of the pt.
--- NOTE | 2022-12-15 20:30 | NUR ---
blood glucose assessed value;153mg/dl.
--- NOTE | 2022-12-15 21:00 | NUR ---
2100p medications administered.pt.capable to ingest the po medications w/out difficulty.insulin;regular 2-u administered per sliding scale.no c/o pain,nausea.call light/telephone placed w/in access of the pt.
[2022-12-15] MEDS: INSULIN REGULAR, HUMAN 100 UNITS/ML, 3 ML VIAL (humuLIN R) SUBCUT PRN (22:05)
--- NOTE | 2022-12-16 | NUR ---
pt.assessed.v/s assessed values wnl.no c/o pain,nausea.no requests posited@this hour.pt.assessed for cleanliness pt.repositioned.call light/telephone placed w/in access of the pt.
[2022-12-16 00:13] VITALS: BP_SYST 128; PULSE 79; RESP 16; TEMP 97.2; O2SAT 96
--- NOTE | 2022-12-16 04:00 | NUR ---
pt.assessed.pt.quiescent.per flacc pain mgx pt.absent facial grimaces/body posturing.pt.assessed for cleanliness pt.repositioned.call light/telephone placed w/in access of the pt.
[2022-12-16] MEDS: NACL 0.9% 1,000 ML IV SCH (05:12)
[2022-12-16] MEDS: metroNIDAZOLE 500 mg/NS 100 ML IV SCH ×3 (05:33→21:43)
--- NOTE | 2022-12-16 06:00 | NUR ---
pt.assessed.pt.quiescent.no c/o pain,nausea.pt.cleaned per elizabeth;manager of medical.blood glucose assessed value:88mg/dl.pt.provided snacks. mid-line intact;flagyl abx ivpb 0600a dose administered synthroid 0700a dose administered.pt.repositioned.call light/telephone placed w/in access of the pt.
[2022-12-16] MEDS: LEVOTHYROXINE SODIUM 0.025 MG TABLET PO SCH (06:16)
[2022-12-16 06:38] LABS: ANION GAP 5 (5-15); C-REACTIVE PROTEIN QUANT 1.1 mg/dL (0-0.5); CHLORIDE 107 mmol/L (98-107); CREATININE 0.55 mg/dL (0.55-1.30); GLUCOSE 101 mg/dL (70-99); UREA NITROGEN, BLOOD 8 mg/dL (8-21)
[2022-12-16 06:48] LABS: BASOPHILS # (AUTO) 0.1 K/uL (0.0-0.2); EOSINOPHILS # (AUTO) 0.2 K/uL (0.0-0.4); EOSINOPHILS % (AUTO) 2.3 % (0.0-4.0); HEMATOCRIT 29.2 % (36-48); HEMOGLOBIN 9.7 g/dL (12.0-16.0); LYMPHOCYTES # (AUTO) 1.8 K/uL (1.0-5.5); LYMPHOCYTES % (AUTO) 26.6 % (20.5-51.5); MEAN CORPUSCULAR HEMOGLOBIN 30 pg (27-31); MEAN CORPUSCULAR HGB CONC 33 % (32-36); MEAN CORPUSCULAR VOLUME 91 fL (79.0-98.0); MONOCYTES # (AUTO) 0.4 K/uL (0.0-1.0); MONOCYTES % (AUTO) 5.6 % (1.7-9.3); NEUTROPHILS # (AUTO) 4.4 K/uL (1.8-7.7); NEUTROPHILS % (AUTO) 64.5 % (40.0-70.0); PLATELET COUNT (AUTO) 286 K/uL (130-430); RED BLOOD CELL COUNT(AUTO) 3.22 MIL/uL (4.2-6.2); RED CELL DISTRIBUTION WIDTH 16.7 % (9.0-15.0); WHITE BLOOD COUNT (AUTO) 6.8 K/uL (4.8-10.8)
[2022-12-16 07:17] LABS: ERYTHROCYTE SEDIMENTATION RATE 11 MM/HR (0-20)
[2022-12-16 08:51] VITALS: BP_SYST 136; PULSE 71; RESP 16; TEMP 97.1; O2SAT 95
[2022-12-16] MEDS ORDERED: LACT1CAP57 PO (09:06)
[2022-12-16] MEDS ORDERED: VANC125C10 PO (09:06)
[2022-12-16] MEDS: ASPIRIN 81 MG TAB.CHEW PO SCH (10:03)
[2022-12-16] MEDS: MULTIVITAMINS TAB 1 TABLET PO SCH (10:03)
[2022-12-16] MEDS: FERROUS SULFATE 325 MG TABLET.DR PO SCH (10:03)
[2022-12-16] MEDS: LACTOBACILLUS RHAMNOSUS GG 1 CAP CAPSULE PO SCH ×2 (10:03→20:31)
[2022-12-16] MEDS: METOPROLOL TARTRATE 50 MG TABLET PO SCH ×2 (10:04→20:32)
[2022-12-16] MEDS: ATORVASTATIN 20 MG TABLET PO SCH (10:04)
[2022-12-16] MEDS: VANCOMYCIN HCL ORAL SOLUTION 125 MG/5 ML, 150 ML PO SCH ×4 (10:05→20:32)
[2022-12-16] MEDS: CLOPIDOGREL BISULFATE 75 MG TABLET PO SCH (10:05)
--- NOTE | 2022-12-16 11:00 | NUR ---
>>>PT NOTES<<< PATIENT REFUSED PHYSICAL THERAPY TODAY DUE TO C/O TIREDNESS AND LAC OF SLEEP. WILL FOLLOW UP ON 12/18/22.
[2022-12-16 11:22] VITALS: BP_SYST 138; PULSE 74; RESP 16; TEMP 96.6; O2SAT 93
[2022-12-16] MEDS: NORMAL SALINE 5 ML DISP.SYRIN IVF SCH ×2 (13:01→22:00)
[2022-12-16] MEDS: INSULIN REGULAR, HUMAN 100 UNITS/ML, 3 ML VIAL (humuLIN R) SUBCUT PRN (13:03)
[2022-12-16 15:06] VITALS: BP_SYST 129; PULSE 68; RESP 16; TEMP 96.8; O2SAT 96
--- NOTE | 2022-12-16 19:30 | NUR ---
INITIAL NOTES; pt. endorsed by day shift. cancel discharge today since pt. does not have a ride, will go home tomorrow @ 1700 per MD order. in no distress. off isolation, c. diff negative. call light within reach.
--- NOTE | 2022-12-16 19:48 | NUR ---
Patient lives alone and does not have a ride today. Patient asks if she can stay today and leave tomorrow at 5PM. MD made aware. Also patient requests a walker. Charge nurse made aware.
[2022-12-16 20:15] VITALS: BP_SYST 145; PULSE 77; RESP 20; TEMP 97.6; O2SAT 96
[2022-12-16 21:00] VITALS: O2SAT 96
--- NOTE | 2022-12-16 22:00 | NUR ---
NOTES: IV antibiotic infused. BS checked 140, no coverage. denies any pain nor weakness. IV site on left upper arm with midline catheter, IV lock. repositioned self for comfort. on room air, no shortness of breath. call light at bedside.
[2022-12-17 00:11] VITALS: BP_SYST 136; PULSE 76; RESP 20; TEMP 97.1; O2SAT 96
--- NOTE | 2022-12-17 02:00 | NUR ---
NOTES: pt. sleeping, no complaints noted.
--- NOTE | 2022-12-17 04:30 | NUR ---
NOTES: condition unchanged. pt. asleep.
[2022-12-17] MEDS: metroNIDAZOLE 500 mg/NS 100 ML IV SCH ×2 (05:35→13:40)
[2022-12-17] MEDS: NORMAL SALINE 5 ML DISP.SYRIN IVF SCH ×2 (06:00→13:40)
--- NOTE | 2022-12-17 06:44 | NUR ---
CLOSING NOTES; pt. awakened, BS checked 96. IV antibiotic infusing. no complaints of pain. will be going home today. foam dressing on coccyx area intact. for further assistance. will endorse to incoming shift.
[2022-12-17] MEDS: LEVOTHYROXINE SODIUM 0.025 MG TABLET PO SCH (06:54)
--- NOTE | 2022-12-17 07:30 | NUR ---
Initial note: report received from Josie. Patient is awake alert x4. Call light in reach. Bed in the lowest position and side rails x2 up. Will continue patient care. No pain or discomfort at this time.
[2022-12-17 08:00] VITALS: O2SAT 96
[2022-12-17] MEDS: VANCOMYCIN HCL ORAL SOLUTION 125 MG/5 ML, 150 ML PO SCH ×2 (08:48→12:13)
[2022-12-17] MEDS: FERROUS SULFATE 325 MG TABLET.DR PO SCH (08:48)
[2022-12-17] MEDS: LACTOBACILLUS RHAMNOSUS GG 1 CAP CAPSULE PO SCH (08:48)
[2022-12-17] MEDS: ASPIRIN 81 MG TAB.CHEW PO SCH (08:48)
[2022-12-17] MEDS: MULTIVITAMINS TAB 1 TABLET PO SCH (08:49)
[2022-12-17] MEDS: METOPROLOL TARTRATE 50 MG TABLET PO SCH (08:49)
[2022-12-17] MEDS: ATORVASTATIN 20 MG TABLET PO SCH (08:50)
[2022-12-17] MEDS: CLOPIDOGREL BISULFATE 75 MG TABLET PO SCH (08:50)
--- NOTE | 2022-12-17 11:00 | NUR ---
Note: called and spoke to Skyla from [facility] and she will deliver patient's walker to her home. Home address is provided. Patient is made aware. No pain or discomfort at this time. Addendum: 12/17/22 at 1323 by Federico Mcneal RN additional note: Skyla's phone number is [phone]
[2022-12-17 12:00] VITALS: BP_SYST 141; PULSE 78; RESP 18; TEMP 98; O2SAT 94
--- NOTE | 2022-12-17 12:00 | NUR ---
Note: picture is taken on the sacral wound and new foam dressing is applied. Patient tolerated well.
[2022-12-17] MEDS: INSULIN REGULAR, HUMAN 100 UNITS/ML, 3 ML VIAL (humuLIN R) SUBCUT PRN (12:06)
--- NOTE | 2022-12-17 13:00 | NUR ---
Note: patient is awake alert x4. Call light in reach. No pain or discomfort at this time. Will continue to monitor.
[2022-12-17 13:04] VITALS: BP_SYST 136; PULSE 76; RESP 20; TEMP 97.1; O2SAT 96
[2022-12-17 16:00] VITALS: BP_SYST 138; PULSE 71; RESP 18; TEMP 97.5; O2SAT 96
--- NOTE | 2022-12-17 17:28 | NUR ---
D/C Patient Patient given medication reconciliation form and D/C instructions. Exit Care provided. Patient verbalized understanding. Ambulatory with steady gait for discharge to home. Patient was transferred via wheelchair. Patient in stable condition, ID band removed. Midline is removed, intact and dressing applied, no active bleeding. Rx of given. Patient educated on pain management. All belongings sent with patient. Family is at the side.
== END 2022-12-17 17:40 | disposition home health service (06) | DRG 871 ==
LOC: SED 18:50 → SMU 12-10 02:13
PROVIDERS: ADMIT Specialist; ATTEND Specialist
DX: A41.9 Sepsis, unspecified organism (principal); E43 Unspecified severe protein-calorie malnutrition; N17.0 Acute kidney failure with tubular necrosis; A04.72 Enterocolitis due to Clostridium difficile, not specified as recurrent; E87.1 Hypo-osmolality and hyponatremia; E11.65 Type 2 diabetes mellitus with hyperglycemia; D64.9 Anemia, unspecified; E83.51 Hypocalcemia; I10 Essential (primary) hypertension; D72.819 Decreased white blood cell count, unspecified; I25.10 Atherosclerotic heart disease of native coronary artery without angina pectoris; E87.6 Hypokalemia; E86.0 Dehydration; R53.81 Other malaise; E03.9 Hypothyroidism, unspecified; Z90.710 Acquired absence of both cervix and uterus; Z68.24 Body mass index [BMI] 24.0-24.9, adult
CPT/HCPCS: 36415; 76376; 80048; 80053; 81000; 82962; 83605; 83690; 83735; 84100; 85025; 85651-TC; 86140; 87040; 87081; 87230-TC; 96361; 96374; 97110-GP; 97116-GP; 97163-GP; 97530-GP; 99285; C1751; J0610; J0696; J1815; J2270; J3475; J3480; J3490; J7030; J7050; J7060

== ENCOUNTER 2023-01-08 11:32 | Inpatient (IN) | payer OTHER ==
[~2023-01-08] VITALS: Ht 160 cm; Wt 58.5 kg
[~2023-01-08 11:32] MED LIST changes: -CEPH-548 PO; +LACT1CAP57 PO; +VANC125C10 PO
[2023-01-08 11:35] VITALS: BP_SYST 130; PULSE 107; RESP 19; TEMP 99.2; O2SAT 96
[2023-01-08 12:21] LABS: BASOPHILS % (AUTO) 0.7 % (0.0-2.0); EOSINOPHILS % (AUTO) 0.1 % (0.0-4.0); HEMATOCRIT 32.2 % (36-48); HEMOGLOBIN 10.6 g/dL (12.0-16.0); LYMPHOCYTES # (AUTO) 0.5 K/uL (1.0-5.5); LYMPHOCYTES % (AUTO) 8.4 % (20.5-51.5); MEAN CORPUSCULAR HEMOGLOBIN 31 pg (27-31); MEAN CORPUSCULAR HGB CONC 33 % (32-36); MEAN CORPUSCULAR VOLUME 93 fL (79.0-98.0); MONOCYTES # (AUTO) 0.2 K/uL (0.0-1.0); MONOCYTES % (AUTO) 3.5 % (1.7-9.3); NEUTROPHILS # (AUTO) 5.4 K/uL (1.8-7.7); NEUTROPHILS % (AUTO) 87.3 % (40.0-70.0); PLATELET COUNT (AUTO) 218 K/uL (130-430); RED BLOOD CELL COUNT(AUTO) 3.46 MIL/uL (4.2-6.2); RED CELL DISTRIBUTION WIDTH 17.6 % (9.0-15.0); WHITE BLOOD COUNT (AUTO) 6.2 K/uL (4.8-10.8)
[2023-01-08 13:19] LABS: ANION GAP 9 (5-15); CALCIUM 8.7 mg/dL (8.4-11.0); CARBON DIOXIDE 28 mmol/L (23-29); CHLORIDE 99 mmol/L (98-107); CREATININE 0.85 mg/dL (0.55-1.30); GLUCOSE 219 mg/dL (74-106); SODIUM SERUM 136 mmol/L (136-145); UREA NITROGEN, BLOOD 23 mg/dL (8-21)
[2023-01-08 13:24] LABS: ALANINE AMINOTRANSFERASE 7 U/L (12-78); ALBUMIN 3.2 g/dL (3.4-4.8); ASPARTATE AMINOTRANSFERASE 18 U/L (10-37); TOTAL BILIRUBIN 0.3 mg/dL (0.0-1.0)
[2023-01-08 14:33] LABS: BILIRUBIN,URINE NEGATIVE (NEGATIVE); CLARITY/URINE CLEAR (CLEAR); COLOR,URINE YELLOW (YELLOW); GLUCOSE,URINE NEGATIVE (NEGATIVE); KETONES,URINE NEGATIVE (NEGATIVE); LEUKOCYTE ESTERASE ,URINE 1+ (NEGATIVE); NITRITE, URINE NEGATIVE (NEGATIVE); PH,URINE 5.5 (5.0-8.0); PROTEIN URINE 2+ (NEGATIVE); UROBILINOGEN,URINE 0.2 (0.2-1.0)
[2023-01-08 14:37] LABS: BLOOD, URINE TRACE (NEGATIVE)
[2023-01-08 14:41] LABS: BACTERIA,URINE FEW /HPF (None Seen); MUCUS,URINE None Seen /LPF (None Seen); RBC,URINE 0-3 /HPF (0-3)
[2023-01-08] MEDS ORDERED: DIPHENHYDRAMINE INJ 50 MG/ML VIAL IVP ONE (15:00)
[2023-01-08] MEDS ORDERED: METOCLOPRAMIDE HCL 10 MG/2 ML VIAL IVP ONE (15:00)
[2023-01-08] MEDS ORDERED: cefTRIAXone 1 GM IVPB PREMIX 50 ML IV ONE (15:15)
[2023-01-08] MEDS: CEFTRIAXONE SOD 1 GM/ DEXTROSE,ISO 50 ML PREMIX IV SCH (17:00)
[2023-01-08 18:24] VITALS: BP_SYST 112; PULSE 89; RESP 16; TEMP 97; O2SAT 99
[2023-01-08 19:00] VITALS: BP_SYST 117; PULSE 83; RESP 18; TEMP 97.1
[2023-01-08 20:00] VITALS: BP_SYST 117; PULSE 83; RESP 18; TEMP 97.1; O2SAT 100
[2023-01-09] VITALS (7 sets, daily range): BP systolic 103–140; PULSE 68–99; RESP 16–18; TEMP 96.4–97.9; O2SAT 98–100
[2023-01-09] MEDS ORDERED: cefTRIAXone 1 GM VIAL IM ONE (09:00)
[2023-01-09] MEDS: INSULIN REGULAR, HUMAN 100 UNITS/ML, 3 ML VIAL (humuLIN R) SUBCUT PRN ×2 (11:50→21:18)
[2023-01-09] MEDS ORDERED: CLOPIDOGREL BISULFATE 75 MG TABLET PO ONE (12:15)
[2023-01-09] MEDS ORDERED: LACTOBACILLUS RHAMNOSUS GG 1 CAP CAPSULE PO ONE (12:15)
[2023-01-09 14:31] LABS: THYROID STIMULATING HORMONE 5.55 uIu/mL (0.36-3.74)
[2023-01-09] MEDS: CEFTRIAXONE SOD 1 GM/ DEXTROSE,ISO 50 ML PREMIX IV SCH (17:04)
[2023-01-09] MEDS: METOPROLOL TARTRATE 50 MG TABLET PO SCH (21:13)
[2023-01-09] MEDS: LACTOBACILLUS RHAMNOSUS GG 1 CAP CAPSULE PO SCH (21:13)
[2023-01-10] VITALS (8 sets, daily range): BP systolic 119–136; PULSE 78–98; RESP 14–16; TEMP 96.2–98.9; O2SAT 78–100
[2023-01-10] MEDS: LEVOTHYROXINE SODIUM 0.025 MG TABLET PO SCH (06:30)
[2023-01-10] MEDS: METOPROLOL TARTRATE 50 MG TABLET PO SCH ×2 (09:18→21:35)
[2023-01-10] MEDS: ASPIRIN 81 MG TAB.CHEW PO SCH (09:18)
[2023-01-10] MEDS: LACTOBACILLUS RHAMNOSUS GG 1 CAP CAPSULE PO SCH ×2 (09:19→21:35)
[2023-01-10] MEDS: CLOPIDOGREL BISULFATE 75 MG TABLET PO SCH (09:19)
[2023-01-10] MEDS ORDERED: ACETAMINOPHEN 325 MG TABLET PO PRN (11:15)
[2023-01-10] MEDS ORDERED: LORATADINE 10 MG TABLET PO ONE (11:45)
[2023-01-10] MEDS: CEFTRIAXONE SOD 1 GM/ DEXTROSE,ISO 50 ML PREMIX IV SCH (17:13)
[2023-01-11] VITALS (7 sets, daily range): BP systolic 101–164; PULSE 73–105; RESP 16–20; TEMP 96.7–97.8; O2SAT 99–100
[2023-01-11] MEDS: LEVOTHYROXINE SODIUM 0.025 MG TABLET PO SCH (06:11)
[2023-01-11 07:33] LABS: BASOPHILS # (AUTO) 0.1 K/uL (0.0-0.2); BASOPHILS % (AUTO) 0.7 % (0.0-2.0); EOSINOPHILS % (AUTO) 0.3 % (0.0-4.0); HEMATOCRIT 33.1 % (36-48); HEMOGLOBIN 10.8 g/dL (12.0-16.0); LYMPHOCYTES # (AUTO) 1.3 K/uL (1.0-5.5); LYMPHOCYTES % (AUTO) 14.5 % (20.5-51.5); MEAN CORPUSCULAR HEMOGLOBIN 30 pg (27-31); MEAN CORPUSCULAR HGB CONC 33 % (32-36); MEAN CORPUSCULAR VOLUME 93 fL (79.0-98.0); MONOCYTES # (AUTO) 0.4 K/uL (0.0-1.0); MONOCYTES % (AUTO) 4.7 % (1.7-9.3); NEUTROPHILS # (AUTO) 6.9 K/uL (1.8-7.7); NEUTROPHILS % (AUTO) 79.8 % (40.0-70.0); PLATELET COUNT (AUTO) 192 K/uL (130-430); RED BLOOD CELL COUNT(AUTO) 3.56 MIL/uL (4.2-6.2); WHITE BLOOD COUNT (AUTO) 8.6 K/uL (4.8-10.8)
[2023-01-11 07:58] LABS: ANION GAP 6 (5-15); CALCIUM 7.8 mg/dL (8.4-11.0); CARBON DIOXIDE 29 mmol/L (23-29); CHLORIDE 99 mmol/L (98-107); CREATININE 0.73 mg/dL (0.55-1.30); GLUCOSE 130 mg/dL (74-106); POTASSIUM 3.3 mmol/L (3.5-5.1); SODIUM SERUM 134 mmol/L (136-145); UREA NITROGEN, BLOOD 17 mg/dL (8-21)
[2023-01-11 08:03] LABS: ALANINE AMINOTRANSFERASE 12 U/L (12-78); ALBUMIN 2.5 g/dL (3.4-4.8); ASPARTATE AMINOTRANSFERASE 12 U/L (10-37); TOTAL BILIRUBIN 0.4 mg/dL (0.0-1.0)
[2023-01-11] MEDS: ASPIRIN 81 MG TAB.CHEW PO SCH (10:06)
[2023-01-11] MEDS: CLOPIDOGREL BISULFATE 75 MG TABLET PO SCH (10:06)
[2023-01-11] MEDS: LORATADINE 10 MG TABLET PO SCH (10:06)
[2023-01-11] MEDS: METOPROLOL TARTRATE 50 MG TABLET PO SCH ×2 (10:06→21:09)
[2023-01-11] MEDS: LACTOBACILLUS RHAMNOSUS GG 1 CAP CAPSULE PO SCH ×2 (10:06→21:09)
[2023-01-11] MEDS: CEFTRIAXONE SOD 1 GM/ DEXTROSE,ISO 50 ML PREMIX IV SCH (17:00)
[2023-01-11] MEDS: INSULIN REGULAR, HUMAN 100 UNITS/ML, 3 ML VIAL (humuLIN R) SUBCUT PRN (21:33)
[2023-01-12 00:07] VITALS: BP_SYST 114; PULSE 70; RESP 16; TEMP 96.4; O2SAT 99
[2023-01-12] MEDS: LEVOTHYROXINE SODIUM 0.025 MG TABLET PO SCH (06:14)
[2023-01-12 07:00] VITALS: O2SAT 100
[2023-01-12] MEDS: ASPIRIN 81 MG TAB.CHEW PO SCH (09:23)
[2023-01-12] MEDS: CLOPIDOGREL BISULFATE 75 MG TABLET PO SCH (09:23)
[2023-01-12] MEDS: METOPROLOL TARTRATE 50 MG TABLET PO SCH (09:23)
[2023-01-12] MEDS: LACTOBACILLUS RHAMNOSUS GG 1 CAP CAPSULE PO SCH (09:23)
[2023-01-12] MEDS: LORATADINE 10 MG TABLET PO SCH (09:28)
[2023-01-12 15:01] VITALS: BP_SYST 109; PULSE 75; RESP 16; TEMP 96.2; O2SAT 100
== END 2023-01-12 15:55 | disposition home or self-care (01) | DRG 69 ==
LOC: SED 11:32 → SMU 16:20
PROVIDERS: ADMIT Specialist; ATTEND Specialist
PROC: 4A10X4Z Monitoring of Central Nervous Electrical Activity, External Approach (ICD-10-PCS; principal; 2023-01-10)
PROC: 4A10X4Z Monitoring of Central Nervous Electrical Activity, External Approach (ICD-10-PCS; 2023-01-12)
DX: G45.9 Transient cerebral ischemic attack, unspecified (principal); N39.0 Urinary tract infection, site not specified; I10 Essential (primary) hypertension; E78.5 Hyperlipidemia, unspecified; E03.9 Hypothyroidism, unspecified; E11.9 Type 2 diabetes mellitus without complications; Z90.710 Acquired absence of both cervix and uterus; Z87.828 Personal history of other (healed) physical injury and trauma; Z86.73 Personal history of transient ischemic attack (TIA), and cerebral infarction without residual deficits; Z86.19 Personal history of other infectious and parasitic diseases; Z79.899 Other long term (current) drug therapy; Z79.84 Long term (current) use of oral hypoglycemic drugs; Z79.82 Long term (current) use of aspirin; Z79.02 Long term (current) use of antithrombotics/antiplatelets; B96.20 Unspecified Escherichia coli [E. coli] as the cause of diseases classified elsewhere
CPT/HCPCS: 36415; 70450-TC; 70551; 71045; 76376; 80053; 81000; 82550; 82962; 83037; 83605; 84443; 85025; 87040; 87086; 93005; 95816; 96365; 96375; 97110-GP; 97116-GP; 97530-GP; 99285; J0696; J1200; J2765; J7050